=== PATIENT | male | born 1965 | race Caucasian/White ===

== ENCOUNTER → 2021-08-10 08:29 | Outpatient (CLI) | payer OTHER, MEDICAID, SELFPAY ==
[2021-08-10 21:02] LABS: COVID19 - ORCAS (NP or Nasal) Negative (Negative)
== END ==
PROVIDERS: PCP Physician Assistant Medical; Visit Provider Physician Assistant
DX: Z20.822 Contact with and (suspected) exposure to COVID-19 (principal)
CPT/HCPCS: C9803; U0003

== ENCOUNTER → 2021-10-04 10:08 | Outpatient (CLI) | payer OTHER, MEDICAID, SELFPAY ==
[2021-10-04 11:25] LABS: Fractionated Inspired Oxygen 21; HCO3 ABG 28 mmol/L (22-26); Oxygen Saturation ABG 95 % (95-100); PCO2 ABG 43.3 mmHg (35-45); PO2 ABG 77 mmHg (80-100); TCO2 ABG 29 mmol/L (21-31); pH ABG 7.42 (7.35-7.45)
== END ==
PROVIDERS: PCP Physician Assistant Medical; Referring Provider Internal Medicine Pulmonary Disease; Visit Provider Internal Medicine Pulmonary Disease
DX: J43.2 Centrilobular emphysema (principal)
CPT/HCPCS: 36600; 82805

== ENCOUNTER 2023-02-17 13:23 | Inpatient (IN) | payer MEDICARE, MEDICAID, SELFPAY ==
[2023-02-17] VITALS (9 sets, daily range): BP systolic 92–125; BP diastolic 44–72; PULSE 70–110; RESP 16–26; TEMP 36.9–37.7; O2SAT 86–98; BMI 16.7
--- NOTE | 2023-02-17 | DI.MRI.S_ITS ---
PROCEDURE: MR HEAD/BRAIN WO CON INDICATIONS: ETOH abuse, Fall head injury TECHNIQUE: Noncontrast axial T1 spin echo, axial T2 fast spin echo, sagittal and axial FLAIR, coronal T2 fast spin echo, axial gradient echo, axial diffusion and ADC through the brain. COMPARISON: [facility], CT, CT HEAD/BRAIN WO CON, 02/17/2023, 14:24. FINDINGS: Image quality: Excellent. CSF Spaces: Basal cisterns are patent. No extra-axial fluid collections. Ventricles are normal in size and shape. Brain: No intracranial masses or hemorrhage. Edwards/white matter interface is normal. T2 hyperintense focus at the left deep white matter, (8/13). Brainstem appears normal. Diffusion-weighted images demonstrate no acute ischemic insult. No chronic ischemic insults. Normal intravascular flow voids are present. Skull and face: Calvarium has normal marrow signal. Orbits appear normal. Sinuses: Sinuses and mastoids are clear. IMPRESSION: No acute intracranial abnormality. No acute infarct. Dictated by: Vik Carreno M.D. on 02/18/2023 at 12:33 Approved by: Vik Carreno M.D. on 02/18/2023 at 12:38
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
[2023-02-17 13:59] LABS: Add Manual Diff / Slide Review NO; Basophils Absolute Auto 100 /uL (0-100); Basophils Percent Auto 0.7 % (0-2); Eosinophils Absolute Auto 0 /uL (0-450); Eosinophils Percent Auto 0.4 % (2-4); Hematocrit 39.8 % (41-53); Hemoglobin 13.5 g/dL (13.5-17.5); Lymphocytes Absolute Auto 3200 /uL (1100-4500); Lymphocytes Percent Auto 37.8 % (25-40); Mean Corpuscular Hemoglobin 31.7 PG (26-34); Mean Corpuscular Volume 93.1 fL (80-100); Monocytes Absolute Auto 400 /uL (0-900); Monocytes Percent Auto 4.4 % (3-14); Neutrophils Absolute Auto 4900 /uL (1500-7000); Neutrophils Percent Auto 56.7 % (50-75); Platelet Count 376 X10^3/uL (150-400); Red Blood Cell Count 4.27 X10^6/uL (4.5-5.9); Red Cell Distribution Width 16.6 % (11.6-14.8); White Blood Cell Count 8.6 X10^3/uL (4.5-11.0)
[2023-02-17 14:04] LABS: Prothrombin Time 11.3 SECONDS (10.1-12.7)
[2023-02-17 14:07] LABS: PTT Partial Thromboplastin Tim 32 SECONDS (26-36)
[2023-02-17 14:10] LABS: Alanine Aminotransferase 18 IU/L (<50); Albumin 4.2 g/dL (3.5-5.0); Albumin Globulin Ratio 1.4 (1.0-2.8); Alkaline Phosphatase 85 U/L (38-126); Aspartate Aminotransferase 32 IU/L (17-59); BUN Creatinine Ratio 26.5 (6-22); Bilirubin Total 0.3 mg/dL (0.2-1.3); Blood Urea Nitrogen 13 mg/dL (9-20); Calcium 8.2 mg/dL (8.4-10.2); Carbon Dioxide 30 mmol/L (22-32); Chloride 100 mmol/L (98-107); Creatine Kinase 84 U/L (55-170); Estimated Glomerular Filt Rate > 60 mL/min (>60); Globulin 3.1 g/dL (1.7-4.1); Glucose 87 mg/dL (70-100); HEMOLYSIS < 15 (0-50); Lactate (Lactic Acid) 2.9 mmol/L (0.7-2.1); Lipase 119 U/L (23-300); Potassium 3.7 mmol/L (3.4-5.1); Sodium 141 mmol/L (137-145); Total Protein 7.3 g/dL (6.3-8.2)
[2023-02-17 14:17] LABS: Ethanol (ETOH) 430 mg/dL
[2023-02-17 14:21] LABS: NT-proBNP (BNP-Adult 18+) 67 pg/mL (<125); Troponin I < 0.012 ng/mL (0.01-0.034)
[2023-02-17] MEDS: ALBUTEROL 2.5 MG/3 ML NEB (ADULT) 10 MG INH (14:35)
[2023-02-17] MEDS: ALBUTEROL/IPRATROPIUM 3 ML AMPUL INH ×2 (14:35→23:23)
[2023-02-17] MEDS: TET,DIPH,PERTUSS(ACELL),VAC/PF 0.5 ML SYRINGE IM (14:50)
[2023-02-17] MEDS: methylPREDNISolone 125 MG/2 ML VIAL IV (14:50)
[2023-02-17 15:10] LABS: Ur Creatinine Normal (Normal); Ur Specific Gravity Normal (Normal); Urine pH Normal (Normal)
[2023-02-17 15:11] LABS: UR Morphine/Opiate cutoff 300 Negative (Negative); Urine Amphetamines Negative (Negative); Urine Barbiturates Negative (Negative); Urine Benzodiazepines Negative (Negative); Urine Cocaine Negative (Negative); Urine MDMA Negative (Negative); Urine Methadone Negative (Negative); Urine Methamphetamines Negative (Negative); Urine Oxycodone Negative (Negative); Urine Phencyclidine Negative (Negative); Urine Tetrahydrocannabinol Negative (Negative); Urine Tricyclic Antidepressant Negative (Negative)
--- NOTE | 2023-02-17 15:35 | RT ---
pt barney neb tx well, no distress noted and on 1 lpm nc
[2023-02-17 15:53] LABS: HCO3 ABG 29 mmol/L (23-27); Oxygen Saturation ABG 93 % (95-100); PCO2 ABG 59.2 mmHg (35-45); PO2 ABG 78 mmHg (80-100); TCO2 ABG 31 mmol/L (23-27)
[2023-02-17 15:54] LABS: Fractionated Inspired Oxygen 28
[2023-02-17 15:55] LABS: Reflexed Lactate in 2 Hours Y
--- NOTE | 2023-02-17 18:10 | PC.NURSE ---
pt rolled over in sleep displacing NC. Oxygen levels dropped to 82% with good waveform on oximeter. reported to provider
[2023-02-17] MEDS: SODIUM CHLORIDE 0.9% 1,000 ML 1000 ML IV (18:40)
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
[2023-02-17 21:22] LABS: Procalcitonin 0.05 ng/mL (<0.5)
[2023-02-18] VITALS (28 sets, daily range): BP systolic 117–164; BP diastolic 67–109; PULSE 49–110; RESP 16–31; TEMP 35.9–37.1; O2SAT 90–98
[2023-02-18 01:51] LABS: Adenovirus Not Detected (Not Detect); B. parapertussis Not Detected (Not Detecte); Bordetella pertussis Not Detected (Not Detecte); Chlamydophila pneumoniae Not Detected (Not Detect); Coronavirus 229E Not Detected (Not Detect); Coronavirus HKU1 Not Detected (Not Detect); Coronavirus NL 63 Not Detected (Not Detect); Coronavirus OC43 Not Detected (Not Detect); Human Metapneumovirus Not Detected (Not Detect); Human Rhinovirus/Enterovirus Not Detected (Not Detect); Influenza A Not Detected (Not Detect); Influenza B Not Detected (Not Detect); Mycoplasma pneumoniae Not Detected (Not Detect); Parainfluenza Virus 1 Not Detected (Not Detect); Parainfluenza Virus 2 Not Detected (Not Detect); Parainfluenza Virus 3 Not Detected (Not Detect); Parainfluenza Virus 4 Not Detected (Not Detect); Respiratory Syncytial Virus Not Detected (Not Detect); SARS- CoV-2 Not Detected (Not Detecte)
[2023-02-18] MEDS: LORazepam 1 MG TABLET PO ×4 (03:49→12:13)
[2023-02-18 05:14] LABS: Add Manual Diff / Slide Review NO; Basophils Absolute Auto 0 /uL (0-100); Basophils Percent Auto 0.4 % (0-2); Eosinophils Absolute Auto 0 /uL (0-450); Hematocrit 37.9 % (41-53); Hemoglobin 12.9 g/dL (13.5-17.5); Lymphocytes Absolute Auto 700 /uL (1100-4500); Lymphocytes Percent Auto 17.4 % (25-40); Mean Corpuscular Hemoglobin 31.5 PG (26-34); Mean Corpuscular Volume 92.7 fL (80-100); Monocytes Absolute Auto 100 /uL (0-900); Neutrophils Absolute Auto 3000 /uL (1500-7000); Neutrophils Percent Auto 80.2 % (50-75); Platelet Count 329 X10^3/uL (150-400); Red Blood Cell Count 4.08 X10^6/uL (4.5-5.9); Red Cell Distribution Width 16.7 % (11.6-14.8); White Blood Cell Count 3.8 X10^3/uL (4.5-11.0)
[2023-02-18 05:24] LABS: BUN Creatinine Ratio 28.6 (6-22); Blood Urea Nitrogen 14 mg/dL (9-20); Calcium 8.7 mg/dL (8.4-10.2); Carbon Dioxide 28 mmol/L (22-32); Chloride 96 mmol/L (98-107); Estimated Glomerular Filt Rate > 60 mL/min (>60); Glucose 260 mg/dL (70-100); HEMOLYSIS < 15 (0-50); Potassium 4.2 mmol/L (3.4-5.1); Sodium 133 mmol/L (137-145)
[2023-02-18 07:03] LABS: Procalcitonin 0.05 ng/mL (<0.5)
[2023-02-18 07:07] LABS: Lactate (Lactic Acid) 2.3 mmol/L (0.7-2.1)
[2023-02-18 07:34] LABS: MRSA (Nasal) PCR Not Detected (Not Detect)
[2023-02-18] MEDS: BUDESONIDE 0.5 MG/2 ML NEB INH ×2 (07:54→19:09)
[2023-02-18 08:53] LABS: Reflexed Lactate in 2 Hours Y
[2023-02-18 09:17] LABS: Lactate 2HR (Lactic Acid Rflx) 2.1 mmol/L (0.7-2.1)
[2023-02-18] MEDS: FOLIC ACID 1 MG TABLET PO (09:50)
[2023-02-18] MEDS: predniSONE 20 MG TABLET 40 MG PO (09:50)
[2023-02-18] MEDS: ENOXAPARIN 40 MG/0.4 ML SYRINGE SUBCUT (09:50)
[2023-02-18] MEDS: THIAMINE 100 MG TABLET PO (09:50)
[2023-02-18] MEDS: NICOTINE 14 PATCH 14 MG TOP (09:52)
[2023-02-18] MEDS: MULTIVITAMIN 1 TABLET 1 TAB PO (09:52)
--- NOTE | 2023-02-18 10:24 | PT.IIE ---
Surgical History (Last Updated 02/17/23 @ 21:33 by Alexia Turner [facility]) History of thoracotomy Medical History ETOH abuse Smoker Physical Therapy Inpatient Evaluation/Re-Eval M1 PT/OT-IP Prior Functional Status Start: 02/18/23 11:51 Freq: NEEDED Status: Active Protocol: Document 02/18/23 10:24 AB (Rec: 02/18/23 12:10 AB [id number]) Medical Review Prior Functional Status Medical History Reviewed Yes Communication able to make needs known Mobility and Gait pt stated that he is independent with all mobilities and ambulation without AD Social History Household Members friend(s) Living Arrangements Homeless Number of Stairs To Enter/Railing? pt lives in his car Additional Social History Comment goes to [facility] for showers M2 PT-IP Current Condition Start: 02/18/23 11:51 Freq: NEEDED Status: Active Protocol: Document 02/18/23 10:24 AB (Rec: 02/18/23 12:10 AB [id number]) Physical Therapy Current Condition Current Condition Evaluation Date 02/18/23 Treatment Diagnosis COPD exacerbation; difficulty in walking Onset Date 02/17/23 M3 PT-IP Subjective Start: 02/18/23 11:51 Freq: NEEDED Status: Active Protocol: Document 02/18/23 10:24 AB (Rec: 02/18/23 12:10 AB [email or web address]) Subjective Physical Therapy Visit Type Type Initial Evaluation Visit Start Time 10:24 Visit Stop Time 10:40 Total Visit Minutes 16 Number of SUPER[employer]OR [employer]YING [employer] SOFTENING Visits 0 Physical Therapy Visit Comments Patient Comments agreeable to do PT M4 PT-IP Mobility and Gait Start: 02/18/23 11:51 Freq: NEEDED Status: Active Protocol: Document 02/18/23 10:24 AB (Rec: 02/18/23 12:10 AB [email or web address]) PT-Bed Mobility Assessment Supine to Sit Supine to Sit Standby Assistance,Head of Bed Elevated PT-Transfer Assessment Sit to and From Stand Sit to and from Stand Contact Guard Assistance,1 Person Assistance,Use of Upper Extremities Equipment Transfer Assistive Device None,Gait Belt,Front Wheeled Walker Orthotic/Prosthetic Devices or Brace: No Transfers Transfer Destination Chair Transfer Technique ambulated Transfer Ability Level of Assist Contact Guard Assistance, Minimal Assistance,1 Person Assistance,Use of Upper Extremities Comments Mobility Comments BP in supine: 133/70 O2 sat: 90-93% with 2L/min O2. NC: 109 completed supine to sit SBA. able to sit on EOB SBA. sit to stand CGA and ambulated towards the chair without AD min A and cues for safety. presents with increase bilateral knee flexion with trunk retropulsion. demonstrated unsteady gait with decrease LE elevation and step length. pt sat on chair . agreed to ambulate with a walk. Assessed ambulation using FWW and completed ~ 30 ft in room CGA and cues for safety. pt can be impulsive. Nurse came and informed that pt will be going to have MRI procedure. pt agreed to sit up on the chair. positioned on the chair. call light and table placed within reach. (+) SOB with activity. O2 sat ~ 90% with 2L/min O2. Gait Assessment Gait Gait Assistance Required: Contact Guard Assist,Minimum Assistance Distance (Feet) 30 Able to Maintain Weight Bearing Status Yes During Gait Assistive Devices Assistive Device None,Gait Belt,Front Wheeled Walker Orthotic/Prosthetic Devices or Brace: No Gait Deviations General Gait Pattern Ataxic,Decreased Stride Length ,Decreased Feet Clearance Factors Limiting Gait Function Factors Limiting Gait Function Decreased Activity Tolerance, Decreased Strength,Difficulty Following Directions,Poor Balance,Poor Safety Awareness, Respiratory Distress PT-Balance Assessment Sitting Balance and Reactions Static Sitting Balance Ability Good Dynamic Sitting Balance Ability Good Standing Balance and Reactions Static Standing Balance Ability Fair Dynamic Standing Balance Ability Poor Device Used without AD M5 PT-IP Objective Assessments Start: 02/18/23 11:51 Freq: NEEDED Status: Active Protocol: Document 02/18/23 10:24 AB (Rec: 02/18/23 12:10 AB [email or web address]) Orientation Orientation/Cognition Level of Alertness Alert Orientation Name,Place,Situation Language Function Ability No Deficits Noted Safety Awareness Decreased Safety Awareness Memory Description No Deficits Noted Gross Range of Motion Lower Extremity ROM Assessment Within Functional Limits Strength Lower Extremity Strength Assessment Bilaterally Impaired Hip 4-/5 Knee 3+/5 Muscle Tone Muscle Tone WNL Yes M6 PT-IP Treatment Start: 02/18/23 11:51 Freq: NEEDED Status: Active Protocol: Document 02/18/23 10:24 AB (Rec: 02/18/23 12:10 AB [email or web address]) Physical Therapy Treatment Education Education Provided Safety M7 PT-IP Assessment and Plan Start: 02/18/23 11:51 Freq: NEEDED Status: Active Protocol: Document 02/18/23 10:24 AB (Rec: 02/18/23 12:10 AB [email or web address]) PT Summary Assessment and Plan Potential Rehabilitation Potential Fair Status of Condition at Evaluation Evolving Summary Impairments Pain,ROM,Strength,Balance, Coordination,Sensation,Tone, Cognition,Bed Mobility, Transfers,Gait,Activity Tolerance Assessment Summary pt admitted for respiratory failure due to COPD exacerbation. Pt also had a fall and with h/o ETOH use. pt also lives in his car with his friend at this time. pt requiring min A with ambulation without AD and presents with unsteady gait and (+) SOB. pt steadier with ambulation using FWW requiring CGA. will continue to assess progress. May need FWW or least restrictive AD use if pt is not safe without AD. Goals Bed Mobility Goal Independent Transfer Goal Independent,Front Wheeled Walker Gait Goal Independent,Front Wheel Walker Gait Distance 300 Other Goals improve transfers and ambulation using least restrictive AD or without AD mod I up/down 10 steps 1 rail SBA Days to Meet Goals 10 Frequency of Treatment Frequency Of Treatment Once a Day Treatment Plan Physical Therapy Treatment Plan Bed Mobility Training,Transfer Training,Gait Training, Therapeutic Exercise,Balance Retraining,Discharge Planning, Hot or Cold Pack,Neuromuscular Re-ed,Coordination Retraining Precautions Other Precautions falls Recommendations To Nursing Amount of Assist Needed 1 Person Assist Discharge Recommendations PT Discharge Recommendations Home vs SNF Equipment Needed for Home Before FWW if not safe without AD/SPC Discharge Transportation Needs at Discharge Private Vehicle,Wheelchair/ Cabulance
--- NOTE | 2023-02-18 12:10 | PC.NURSE ---
Late reassessment on CIWA due to pt going to down to MRI and coming back up at 1148.
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
[2023-02-18] MEDS: LORazepam 2 MG/ML INJ IV ×9 (13:51→17:56)
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
[2023-02-18] MEDS: HYDROCODONE/ACET 5/325 TABLET 1 TAB PO (15:42)
--- NOTE | 2023-02-18 17:17 | PC.NURSE ---
Provider aware that the pt has been getting 2 mg IV push Ativan q15 minutes for a total of 7 doses by 1709.
[2023-02-18] MEDS: HALOPERIDOL 5 MG/ML VIAL IV (17:57)
[2023-02-18] MEDS: dexmedeTOMIDine in 0.9 % NaCL 400 MCG/100 ML PLAST..BAG 5.15 MCG IV (21:00)
[2023-02-19] VITALS (83 sets, daily range): BP systolic 87–165; BP diastolic 50–113; PULSE 40–91; RESP 6–40; TEMP 36.4–36.8; O2SAT 88–99
--- NOTE | 2023-02-19 01:15 | PC.NURSE ---
Addendum entered by Kelsi Lau R.N. 02/19/23 07:43: 0530- Patient had sudden desaturation to 83-84%. Breathing treatment given saturation only responded to 86-87%. Patient work of breathing increasing. Patient placed on 100% NRB and DENILSON Turner called to the bedside. Precedex increased to .08. EICU consulted and plan to intubate initiated. ER doctor came to intubate see procedure note. Patient on ventilator by 0600. Sedation meds ordered. Report given to day shift RN. Stable at time of report. Original Note: 0100- Patient desaturated to 88-89%. Patient restless and work of breathing markedly increased. Respiratory rate 40-45. Respiratory Therapy called for a stat treatment. DENILSON Turner called and ABG ordered. Patient using accessory muscles to breathe. Precedex increased to address restlessness. ABG did not reveal numbers that needed immediate intervention. Patient has good urinary output. Lungs: defuse wheezes bilaterally with very deminshed bases. Will monitor closely.
[2023-02-19 04:51] LABS: Hematocrit 38.5 % (41-53); Hemoglobin 12.9 g/dL (13.5-17.5); Mean Corpuscular HGB Conc 33.4 % (30-36); Mean Corpuscular Volume 92.9 fL (80-100); Platelet Count 311 X10^3/uL (150-400); Red Blood Cell Count 4.15 X10^6/uL (4.5-5.9); Red Cell Distribution Width 16.3 % (11.6-14.8); White Blood Cell Count 12.5 X10^3/uL (4.5-11.0)
[2023-02-19 04:52] LABS: Add Manual Diff / Slide Review YES
[2023-02-19 04:58] LABS: BUN Creatinine Ratio 27.1 (6-22); Blood Urea Nitrogen 13 mg/dL (9-20); Calcium 8.9 mg/dL (8.4-10.2); Carbon Dioxide 38 mmol/L (22-32); Chloride 98 mmol/L (98-107); Estimated Glomerular Filt Rate > 60 mL/min (>60); Glucose 115 mg/dL (70-100); HEMOLYSIS < 15 (0-50); Potassium 4.1 mmol/L (3.4-5.1); Sodium 138 mmol/L (137-145)
[2023-02-19 05:09] LABS: Neutrophils Absolute Manual 10500 /uL (3000-5900); Total Cells Counted 100
[2023-02-19 05:10] LABS: Anisocytosis 2+
[2023-02-19] MEDS: methylPREDNISolone 125 MG/2 ML VIAL 60 MG IV ×2 (05:43→10:53)
--- NOTE | 2023-02-19 05:48 | P.TELICUCN_ITS ---
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 Initially admitted after fall, found to have COPD exacerbation/hypercarbic respiratory failure. Had received steroids, nebs and was on NC. Over course of 02/18 received several doses of ativan on ciwa protocol as well as precedex gtt and became more somnolent. Was upgraded to ICU status. abg on 6 L O2 7.37/63/69- However, he acutely had worsening respiratory distress with use of accessory muscles, poor air movement and desat to 80's- now on 100% NRB. He was given neb, will be given iv steroids, mag. starting abx for possible aspiration PNA. Bipap is not a ocean transportation intermediary option given his current somnolence, however, he is being placed on bipap to temporize with MD is called in for intubation. [facility] Medical History ETOH abuse Smoker Surgical History History of thoracotomy Family History Grandfather Diabetes mellitus Uncle Diabetes mellitus Father Cancer Social History household members: friend(s) Smoking Status: Current every day smoker alcohol intake: current Current Medications Current Medications Medications: Home Medications budesonide-formoterol HFA 80 mcg-4.5 mcg/actuation aerosol inhaler (Symbicort) 2 puff inhalation BID #10.2 grams 05/28/21 [Rx Confirmed 02/18/23] albuterol sulfate 90 mcg/actuation aerosol inhaler See Rx Instructions .Route .COMPLEX #8.5 grams 09/30/21 [Rx Confirmed 02/18/23] tiotropium bromide 18 mcg capsule with inhalation device (Spiriva with HandiHaler) 1 cap inhalation DAILY 02/23/22 [History Confirmed 02/18/23] Visit Medications (administered) Generic Name Dose Route Start Last Admin Trade Name Freq PRN Reason Stop Dose Admin Hydrocodone Bitart/Acetaminophen 1 tab 02/17/23 19:55 02/18/23 15:42 Hydrocodone/Acet 5/325 Tablet PO 1 tab Q4H PRN Administration Pain, Moderate (4-10 Budesonide 0.5 mg 02/18/23 08:00 02/18/23 19:09 Budesonide 0.5 Mg/2 Ml Neb INH 0.5 mg RTBID XU Administration Enoxaparin Sodium 40 mg 02/18/23 09:00 02/18/23 09:50 Enoxaparin 40 Mg/0.4 Ml Syringe SUBCUT 40 mg DAILY XU Administration Folic Acid 1 mg 02/18/23 09:00 02/18/23 09:50 Folic Acid 1 Mg Tablet PO 1 mg DAILY XU Administration dexmedeTOMIDine in 0.9 % NaCL 400 mcg in 100 mls @ 2.575 mls/hr 02/18/23 20:45 02/19/23 01:00 Precedex IV 0.6 mcg/kg/hr TITRATE XU 7.725 mls/hr Titration Protocol 0.2 MCG/KG/HR Lorazepam 0 mg 02/17/23 20:03 02/18/23 12:13 Lorazepam 1 Mg Tablet PO 2 mg CIWAPRN PRN Administration Alcohol Withdrawal Protocol Lorazepam 0 mg 02/18/23 13:31 02/18/23 17:56 Lorazepam 2 Mg/Ml Inj IV 2 mg CIWAPRN PRN Administration Alcohol Withdrawal Protocol Multivitamins 1 tab 02/18/23 09:00 02/18/23 09:52 Multivitamin 1 Tablet PO 1 tab DAILY XU Administration Nicotine 14 mg 02/18/23 09:00 02/18/23 09:52 Nicotine 14 Patch TOP 14 mg DAILY XU Administration Prednisone 40 mg 02/18/23 09:00 02/18/23 09:50 Prednisone 20 Mg Tablet PO 02/22/23 08:59 40 mg DAILY XU Administration Thiamine HCl 100 mg 02/18/23 09:00 02/18/23 09:50 Thiamine 100 Mg Tablet PO 02/21/23 09:01 100 mg DAILY XU Administration Review of Systems Review of Systems Narrative: Patient lying in bed, somnolent, unable to give ROS Exam Vital Signs (past 8 hours): - 02/18/23 22:01 02/18/23 22:00 02/18/23 22:00 Temperature Pulse Rate 51 L Respiratory Rate 27 H Blood Pressure 126/71 Pulse Oximetry 95 Oxygen Delivery Method Simple Mask Oxygen Flow Rate 02/18/23 22:30 02/18/23 23:00 02/18/23 23:00 Temperature Pulse Rate 50 L 49 L Respiratory Rate 27 H 28 H Blood Pressure 123/67 Pulse Oximetry 94 97 Oxygen Delivery Method Oxygen Flow Rate 02/18/23 23:30 02/19/23 00:00 02/19/23 00:00 Temperature 97.5 F L Pulse Rate 50 L 55 L Respiratory Rate 27 H 27 H Blood Pressure 123/71 Pulse Oximetry 96 93 Oxygen Delivery Method Oxygen Flow Rate 6 6 02/19/23 00:16 02/19/23 01:00 02/19/23 01:00 Temperature Pulse Rate 61 91 H Respiratory Rate 26 H 40 H Blood Pressure 114/59 L Pulse Oximetry 92 91 Oxygen Delivery Method Oxygen Flow Rate 5 5 02/19/23 01:03 02/19/23 01:03 02/19/23 01:07 Temperature Pulse Rate 86 Respiratory Rate 27 H Blood Pressure 104/58 L 102/58 L Pulse Oximetry 92 Oxygen Delivery Method Oxygen Flow Rate 5 5 5 02/19/23 01:07 02/19/23 01:30 02/19/23 01:30 Temperature Pulse Rate 82 74 Respiratory Rate 25 H 25 H Blood Pressure 100/59 L Pulse Oximetry 92 90 L Oxygen Delivery Method Oxygen Flow Rate 5 5 5 02/19/23 01:44 02/19/23 02:01 02/19/23 02:00 Temperature Pulse Rate 73 Respiratory Rate 27 H Blood Pressure 100/61 Pulse Oximetry 91 Oxygen Delivery Method Simple Mask Oxygen Flow Rate 5 02/19/23 02:00 02/19/23 02:30 02/19/23 02:30 Temperature Pulse Rate 68 70 Respiratory Rate 28 H 28 H Blood Pressure 104/67 Pulse Oximetry 93 89 L Oxygen Delivery Method Oxygen Flow Rate 02/19/23 03:00 02/19/23 03:00 02/19/23 03:30 Temperature Pulse Rate 57 L Respiratory Rate 26 H Blood Pressure 110/73 126/69 Pulse Oximetry 91 Oxygen Delivery Method Oxygen Flow Rate 5 02/19/23 03:30 02/19/23 03:59 02/19/23 04:00 Temperature 98.2 F Pulse Rate 50 L 52 L Respiratory Rate 28 H 27 H Blood Pressure 124/77 Pulse Oximetry 93 93 Oxygen Delivery Method Oxygen Flow Rate 5 5 5 02/19/23 04:00 02/19/23 04:30 02/19/23 04:30 Temperature Pulse Rate 52 L 57 L Respiratory Rate 27 H 28 H Blood Pressure 124/81 Pulse Oximetry 93 92 Oxygen Delivery Method Oxygen Flow Rate 15 15 15 02/19/23 05:00 02/19/23 05:00 02/19/23 05:30 Temperature Pulse Rate 66 Respiratory Rate 28 H Blood Pressure 135/72 109/67 Pulse Oximetry 88 L Oxygen Delivery Method Oxygen Flow Rate 15 15 15 02/19/23 05:30 02/19/23 05:32 Temperature Pulse Rate 80 81 Respiratory Rate 32 H 31 H Blood Pressure Pulse Oximetry 92 92 Oxygen Delivery Method Oxygen Flow Rate 15 15 Fraction of Inspired Oxygen 32 SaO2/FiO2 Ratio 293 Oxygen Delivery Method Simple Mask Oxygen Flow Rate 15 Narrative Exam Narrative: Patient lying in bed, eyes closed. Thin. Wearing NRB. USing accessory muscles to breathe. Sat 88% on monitor. SR on tele. BP WNL Objective Imaging Chest x-ray: My impression: CXR ordered but not yet done Labs 02/19/23 04:23 02/19/23 04:23 Labs: Laboratory Results - last 24 hr 02/18/23 02/18/23 02/18/23 04:51 05:50 06:49 WBC RBC Hgb Hct MCV MCH MCHC RDW Plt Count Neut % (Auto) Lymph % (Auto) [place] % (Auto) Eos % (Auto) Baso % (Auto) Lymph # (Auto) [place] # (Auto) Baso # (Auto) Total Counted Seg Neutrophils % Band Neutrophils % Lymphocytes % (Manual) Monocytes % (Manual) Neutrophils # (Manual) RBC Morphology Anisocytosis Sodium Potassium Chloride Carbon Dioxide BUN Creatinine Estimated GFR BUN/Creatinine Ratio Glucose Lactate 2.3 H Calcium Procalcitonin 0.05 Nasal Screen MRSA (PCR) Not detected 02/18/23 02/19/23 02/19/23 09:00 04:23 04:23 WBC 12.5 H D RBC 4.15 L Hgb 12.9 L Hct 38.5 L MCV 92.9 MCH 31.0 MCHC 33.4 RDW 16.3 H Plt Count 311 Neut % (Auto) Not Reportable Lymph % (Auto) Not Reportable [place] % (Auto) Not Reportable Eos % (Auto) Not Reportable Baso % (Auto) Not Reportable Lymph # (Auto) Not Reportable [place] # (Auto) Not Reportable Baso # (Auto) Not Reportable Total Counted 100 Seg Neutrophils % 82.0 H Band Neutrophils % 2.0 L Lymphocytes % (Manual) 12.0 L Monocytes % (Manual) 4.0 Neutrophils # (Manual) 55016 H RBC Morphology See below Anisocytosis 2+ H Sodium 138 Potassium 4.1 Chloride 98 Carbon Dioxide 38 H BUN 13 Creatinine 0.48 L Estimated GFR > 60 BUN/Creatinine Ratio 27.1 H Glucose 115 H D Lactate 2.1 Calcium 8.9 Procalcitonin Nasal Screen MRSA (PCR) Assessment & Plan Assessment and plan (1) ETOH abuse: Status: Acute (2) Head injury: Status: Acute (3) Acute respiratory failure with hypoxia and hypercapnia: Status: Acute (4) Acute exacerbation of chronic obstructive pulmonary disease: Status: Acute (5) Alcohol intoxication: Status: Acute (6) Abrasion of scalp: Status: Acute (7) COPD (chronic obstructive pulmonary disease): Status: Acute (8) Smoker: Status: Acute (9) Pneumonia: Qualifiers: Pneumonia type: due to unspecified organism Laterality: unspecified laterality Lung location: unspecified part of lung Qualified Code(s): J18.9 - Pneumonia, unspecified organism Status: Acute (10) Alcohol withdrawal: Status: Acute Assessment & Plan narrative: 57 yo M with COPD hx, now in alcohol withdrawal, sedated on ativan/precedex. With acute worsening or respiratory status, hypoxemia, poor air movement. Concerning for possible aspiration and COPD exacerbation. Discussed case with ARMATURE STRAIGHTENER Plan will be intubation. Temporize with bipap for now q 4 duonebs methylpred- 60 iv q 6 mag 2 grams now start zosyn for aspiration coverage follow up post intubation CXR, ABG, obtain sputum cultures from ETT admission cultures are pending Start Tube feeds once intubated, low BMI continue thiamine, MVI , folate Is scheduled for MRI brain given head injury/scalp abrasion (CT head neg for acute intracranial process) vent sedation with precedex, fentanyl gtt ativan per CIWA nicotine patch, encourage tobacco cessation SW consult given homelessness Lovenox, famotidine for PPX Time Spent With Patient Time with patient: 50 to 69 minutes with 50% spent counseling/coordinating care (50 min critical care time)
[2023-02-19] MEDS: dexmedeTOMIDine in 0.9 % NaCL 400 MCG/100 ML PLAST..BAG 19.313 MCG IV (06:08)
--- NOTE | 2023-02-19 06:11 | PM.PROC.1 ---
Procedures Date/Time Date of procedure: 02/19/23 Time of procedure: 06:12 General Procedure description: Asked by hospitalist service to help with intubation for this gentleman in the intensive care unit with worsening hypoxic respiratory failure currently on BiPAP at 100% with saturations dipping into the upper 80s. Intubation Time out performed: Yes Sedative: other (precedex drip already in place) Paralytic: succinylcholine Mg given: 100 Laryngoscope: fiber optic video scope ET tube size: 8 ET tube uncuffed: No Tube secured depth (cm): 23 Tube secured location: teeth Tube placement confirmation: visualized tube passing through cords, equal breath sounds bilaterally, no breath sounds over epigastrium and confirmation by capnometry Patient tolerated procedure: well Intubation complications: none Additional comments: Very long expiratory phase once intubated. Allowed for extended expiration and sats as well as BP improved. Recommend short inspiratory phase and long exp phase to avoid breath stacking.
--- NOTE | 2023-02-19 06:15 | DI.RAD.S_ITS ---
PROCEDURE: XR CHEST 1V INDICATIONS: eval ETT TECHNIQUE: One view of the chest was acquired. COMPARISON: [facility], CT, CT CERVICAL SPINE WO CON, 02/17/2023, 14:24. [facility], CR, XR CHEST 1V, 02/17/2023, 13:36. FINDINGS: Surgical changes and devices: Endotracheal tube is in place with the distal tip projecting approximately 7 cm above the sean. Lungs and pleura: Redemonstration of linear scarring of the bilateral upper lung zone/apices compatible with previously seen scarring and emphysematous changes on comparison CT of the cervical spine. Streaky opacities in linear lucencies noted predominantly in the left upper lung zone likely related to artifact from overlying support equipment. However, pneumomediastinum not excluded. No focal consolidation. No pleural effusions or pneumothorax. Mediastinum: Mediastinal contours appear stable. Heart size is normal. Bones and chest wall: No suspicious bony lesions. Overlying soft tissues appear unremarkable. IMPRESSION: Endotracheal tube tip projects approximately 7 cm above the sean. Streaky opacities of the medial upper lung zone/apices likely related to scarring and pulmonary emphysematous changes. However, there is suggestion of linear lucencies medially which may represent possible pneumomediastinum versus artifact of overlying support equipment. Follow-up radiograph recommended. No significant discrepancy with the patching machine operator radiology preliminary report. Dictated by: Tesfaye Whitman M.D. on 02/19/2023 at 7:33 Approved by: Tesfaye Whitman M.D. on 02/19/2023 at 7:46
[2023-02-19] MEDS: MIDAZOLAM 2 MG/2 ML VIAL (06:19)
[2023-02-19] MEDS: SUCCINYLCHOLINE 200 MG/10 ML VIAL 100 MG IV (06:20)
[2023-02-19] MEDS: PIPERACILLIN/TAZO 4.5 GM in SODIUM CHLORIDE 0.9% 100 ML IV (06:21)
--- NOTE | 2023-02-19 06:23 | PM.EVENT ---
Event Note Date Patient Seen: 02/19/23 Time Patient Seen: 00:00 Event Note (Rapid Response, Code, or fall): 0000 Acute hypoxic hypercapnic respiratory failure At approximately midnight patient became significantly sedated following a total of 18 mg of Ativan given on the day shift for alcohol withdrawal symptoms, O2 saturations were dropping into the low 80s, increasing respiratory distress, tachypneic RR 30-50, increased work of breathing, prolonged expiratory phase, accessory muscle use, tachypneic. Patient was moved to the ICU was placed on non-rebreather mask 6 L, lung sounds were decreased in bilateral bases poor air exchange Patient's respiratory function & work of breathing on the Precedex drip. Tachypnea and O2 saturations resolved. ABGs pH 7.354, pCO2 63.4, PO2 69, base excess 10, bicarb 35.3, TCO2 37, O2 saturation 92%, sodium 140, potassium 4.3 Portable chest ordered Nebulizer treatment 5:30 a.m. The patient became significantly tachypneic with prolonged expiratory phase, patient was placed on 100% non-rebreather O2 sats continued to be in the 80s respiratory rate 30 to 40s, significantly increased work of breathing and accessory muscle use. Ordered BiPAP to bridge the patient until intubation could be performed Zosyn to cover for possible aspiration pneumonia Methylprednisone 60 mg now, Q day Repeat nebulizer Consult Dr. Navarro tele mill operator head who agreed with plan of care Consult Dr. Landeros ED for intubation due to pending respiratory arrest Patient placed on Versed drip in addition to Precedex Patient was intubated approximately 6:00 a.m. Patient has stabilized improve air exchange, tachypnea resolved. 0000 Alcohol abuse with acute alcohol withdrawal continued to have significant withdrawal symptoms despite the total of 18 mg of Ativan given on the day shift Placed patient on a Precedex drip@0100
[2023-02-19 06:43] LABS: Alanine Aminotransferase 16 IU/L (<50); Albumin 3.7 g/dL (3.5-5.0); Albumin Globulin Ratio 1.3 (1.0-2.8); Alkaline Phosphatase 80 U/L (38-126); Aspartate Aminotransferase 25 IU/L (17-59); BUN Creatinine Ratio 29.5 (6-22); Bilirubin Total 0.5 mg/dL (0.2-1.3); Blood Urea Nitrogen 13 mg/dL (9-20); Calcium 9.2 mg/dL (8.4-10.2); Carbon Dioxide 37 mmol/L (22-32); Chloride 100 mmol/L (98-107); Estimated Glomerular Filt Rate > 60 mL/min (>60); Globulin 2.8 g/dL (1.7-4.1); Glucose 113 mg/dL (70-100); HEMOLYSIS < 15 (0-50); Potassium 4.4 mmol/L (3.4-5.1); Sodium 138 mmol/L (137-145); Total Protein 6.5 g/dL (6.3-8.2)
[2023-02-19 06:46] LABS: HCO3 ABG 35 mmol/L (23-27); PCO2 ABG 63.4 mmHg (35-45); PO2 ABG 69 mmHg (80-100)
[2023-02-19 06:47] LABS: Fractionated Inspired Oxygen 32; Oxygen Saturation ABG 92 % (95-100); TCO2 ABG 37 mmol/L (23-27)
[2023-02-19 06:48] LABS: pH ABG 7.35 (7.35-7.45)
[2023-02-19] MEDS: MIDAZOLAM 50 MG in DEXTROSE 5 % IN WATER 40 ML IV ×2 (06:51→16:58)
--- NOTE | 2023-02-19 07:25 | DI.RAD.S_ITS ---
PROCEDURE: XR CHEST 1V INDICATIONS: Possible pnuemomediastinum TECHNIQUE: One view of the chest was acquired. COMPARISON: [facility], CR, XR CHEST 1V, 02/19/2023, 6:02. FINDINGS: Surgical changes and devices: Endotracheal tube tip projects approximately 5 cm above the sean. Lungs and pleura: Previously described medial, bilateral upper lung zone and apical streaky opacities have resolved. Persistent biapical scarring and pulmonary emphysematous changes as before. No new focal airspace disease. No pneumothorax appreciated. No substantial pleural effusion. Mediastinum: Mediastinal contours appear normal. Heart size is normal. Bones and chest wall: No suspicious bony lesions. Overlying soft tissues appear unremarkable. IMPRESSION: Endotracheal tube tip projects approximately 5 cm above the sean. Biapical pulmonary emphysematous changes and scarring as before. No new focal airspace disease. No findings to suggest pneumomediastinum. Dictated by: Tesfaye Whitman M.D. on 02/19/2023 at 8:01 Approved by: Tesfaye Whitman M.D. on 02/19/2023 at 8:06
[2023-02-19] MEDS: BUDESONIDE 0.5 MG/2 ML NEB INH ×2 (07:42→19:08)
[2023-02-19] MEDS: MAGNESIUM SULFATE 2 GM/50 ML PIGGYBACK IV (07:56)
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
--- NOTE | 2023-02-19 08:05 | DI.RAD.S_ITS ---
PROCEDURE: XR CHEST 1V INDICATIONS: OG tube placement TECHNIQUE: One view of the chest was acquired. COMPARISON: [facility], CR, XR CHEST 1V, 02/19/2023, 7:25. FINDINGS: Surgical changes and devices: Right IJ central venous line in the mid SVC. Endotracheal tube tip unchanged. Nasogastric tube in the stomach. Lungs and pleura: Lungs are clear. No pleural effusions or pneumothorax. Mediastinum: Mediastinal contours appear normal. Heart size is normal. Bones and chest wall: No suspicious bony lesions. Overlying soft tissues appear unremarkable. IMPRESSION: Right IJ central venous line in the mid SVC. No pneumothorax. Other lines and tubes unchanged. Hyperinflation and chronic interstitial changes Approved by: Wayne Chinchilla M.D. on 02/19/2023 at 11:06
[2023-02-19] MEDS: propofoL 200 MG/20 ML VIAL 50 MG IV (08:50)
[2023-02-19] MEDS: NICOTINE 14 PATCH 14 MG TOP (09:48)
[2023-02-19] MEDS: ENOXAPARIN 40 MG/0.4 ML SYRINGE SUBCUT (09:48)
[2023-02-19] MEDS: FAMOTIDINE 20 MG/2 ML VIAL IV ×2 (09:48→21:20)
--- NOTE | 2023-02-19 09:58 | P.CONS_ITS ---
History of Present Illness Consult details Date Patient Seen: 02/19/23 Time Patient Seen: 07:55 Chief complaint: Acute resp Failure/ETOH intoxication, head injury Reason for consult: Need for CVL placement Narrative: Pt is in ICU. Pt is intubated. US was used for line placement. Sterile gown and gloves. Triple lumen catheter was inserted. FlushX3. CXR was ordered. VSS. Meds Home Medications and Allergies Home Medications Medication Instructions Recorded Confirmed Type budesonide-formoterol HFA 80 2 puff inhalation BID #10.2 grams 05/28/21 02/18/23 Rx mcg-4.5 mcg/actuation aerosol inhaler (Symbicort) albuterol sulfate 90 mcg/actuation See Rx Instructions .Route 09/30/21 02/18/23 Rx aerosol inhaler .COMPLEX #8.5 grams tiotropium bromide 18 mcg capsule 1 cap inhalation DAILY 02/23/22 02/18/23 History with inhalation device (Spiriva with HandiHaler) Allergies Allergy/AdvReac Type Severity Reaction Status Date / Time No Known Drug Allergies Allergy Unverified 02/23/22 10:05 Exam Vital Signs (past 8 hours): - 02/19/23 02:01 02/19/23 02:00 02/19/23 02:00 Temperature Pulse Rate 68 Respiratory Rate 28 H Blood Pressure 100/61 Pulse Oximetry 93 Oxygen Delivery Method Simple Mask Oxygen Flow Rate Fraction of Inspired Oxygen 02/19/23 02:30 02/19/23 02:30 02/19/23 03:00 Temperature Pulse Rate 70 Respiratory Rate 28 H Blood Pressure 104/67 110/73 Pulse Oximetry 89 L Oxygen Delivery Method Oxygen Flow Rate Fraction of Inspired Oxygen 02/19/23 03:00 02/19/23 03:30 02/19/23 03:30 Temperature Pulse Rate 57 L 50 L Respiratory Rate 26 H 28 H Blood Pressure 126/69 Pulse Oximetry 91 93 Oxygen Delivery Method Oxygen Flow Rate 5 5 Fraction of Inspired Oxygen 02/19/23 03:59 02/19/23 04:00 02/19/23 04:00 Temperature 98.2 F Pulse Rate 52 L 52 L Respiratory Rate 27 H 27 H Blood Pressure 124/77 Pulse Oximetry 93 93 Oxygen Delivery Method Oxygen Flow Rate 5 5 15 Fraction of Inspired Oxygen 02/19/23 04:30 02/19/23 04:30 02/19/23 05:00 Temperature Pulse Rate 57 L Respiratory Rate 28 H Blood Pressure 124/81 135/72 Pulse Oximetry 92 Oxygen Delivery Method Oxygen Flow Rate 15 15 15 Fraction of Inspired Oxygen 02/19/23 05:00 02/19/23 05:30 02/19/23 05:30 Temperature Pulse Rate 66 80 Respiratory Rate 28 H 32 H Blood Pressure 109/67 Pulse Oximetry 88 L 92 Oxygen Delivery Method Oxygen Flow Rate 15 15 15 Fraction of Inspired Oxygen 02/19/23 05:32 02/19/23 06:00 02/19/23 06:00 Temperature Pulse Rate 81 63 Respiratory Rate 31 H 22 Blood Pressure Pulse Oximetry 92 93 Oxygen Delivery Method Mechanical Ventilation Oxygen Flow Rate 15 Fraction of Inspired Oxygen 02/19/23 06:01 02/19/23 06:01 02/19/23 06:05 Temperature Pulse Rate 77 Respiratory Rate 11 L Blood Pressure 139/64 162/113 H Pulse Oximetry 95 Oxygen Delivery Method Oxygen Flow Rate Fraction of Inspired Oxygen 02/19/23 06:05 02/19/23 06:30 02/19/23 06:30 Temperature Pulse Rate 80 74 Respiratory Rate 6 L 23 Blood Pressure 104/66 Pulse Oximetry 94 95 Oxygen Delivery Method Oxygen Flow Rate Fraction of Inspired Oxygen 02/19/23 07:00 02/19/23 07:00 02/19/23 07:51 Temperature Pulse Rate 48 L 43 L Respiratory Rate 26 H 15 Blood Pressure 115/74 Pulse Oximetry 98 99 Oxygen Delivery Method Mechanical Ventilation Oxygen Flow Rate Fraction of Inspired Oxygen 50 02/19/23 07:30 02/19/23 07:30 02/19/23 08:00 Temperature Pulse Rate 44 L Respiratory Rate 20 Blood Pressure 144/78 H 144/82 H Pulse Oximetry 99 Oxygen Delivery Method Oxygen Flow Rate Fraction of Inspired Oxygen 02/19/23 08:00 02/19/23 06:20 Temperature Pulse Rate 41 L Respiratory Rate 29 H Blood Pressure Pulse Oximetry 99 Oxygen Delivery Method Oxygen Flow Rate Fraction of Inspired Oxygen 100 Fraction of Inspired Oxygen 50 SaO2/FiO2 Ratio 198 Oxygen Delivery Method Mechanical Ventilation Oxygen Flow Rate 15 Objective Labs 02/19/23 04:23 02/19/23 04:23 Labs: Laboratory Results - last 24 hr 02/19/23 02/19/23 02/19/23 00:53 04:23 04:23 WBC 12.5 H D RBC 4.15 L Hgb 12.9 L Hct 38.5 L MCV 92.9 MCH 31.0 MCHC 33.4 RDW 16.3 H Plt Count 311 Neut % (Auto) Not Reportable Lymph % (Auto) Not Reportable [place] % (Auto) Not Reportable Eos % (Auto) Not Reportable Baso % (Auto) Not Reportable Lymph # (Auto) Not Reportable [place] # (Auto) Not Reportable Baso # (Auto) Not Reportable Total Counted 100 Seg Neutrophils % 82.0 H Band Neutrophils % 2.0 L Lymphocytes % (Manual) 12.0 L Monocytes % (Manual) 4.0 Neutrophils # (Manual) 70272 H RBC Morphology See below Anisocytosis 2+ H ABG pH 7.35 ABG pCO2 63.4 H* ABG pO2 69 L ABG HCO3 35 H ABG Total CO2 37 H ABG O2 Saturation 92 L ABG Base Excess 10.0 H FiO2 32 Sodium 138 Potassium 4.1 Chloride 98 Carbon Dioxide 38 H BUN 13 Creatinine 0.48 L Estimated GFR > 60 BUN/Creatinine Ratio 27.1 H Glucose 115 H D Calcium 8.9 Total Bilirubin AST ALT Alkaline Phosphatase Total Protein Albumin Globulin Albumin/Globulin Ratio 02/19/23 04:23 WBC RBC Hgb Hct MCV MCH MCHC RDW Plt Count Neut % (Auto) Lymph % (Auto) [place] % (Auto) Eos % (Auto) Baso % (Auto) Lymph # (Auto) [place] # (Auto) Baso # (Auto) Total Counted Seg Neutrophils % Band Neutrophils % Lymphocytes % (Manual) Monocytes % (Manual) Neutrophils # (Manual) RBC Morphology Anisocytosis ABG pH ABG pCO2 ABG pO2 ABG HCO3 ABG Total CO2 ABG O2 Saturation ABG Base Excess FiO2 Sodium 138 Potassium 4.4 Chloride 100 Carbon Dioxide 37 H BUN 13 Creatinine 0.44 L Estimated GFR > 60 BUN/Creatinine Ratio 29.5 H Glucose 113 H Calcium 9.2 Total Bilirubin 0.5 AST 25 ALT 16 Alkaline Phosphatase 80 Total Protein 6.5 Albumin 3.7 Globulin 2.8 Albumin/Globulin Ratio 1.3 PFSH Medical History ETOH abuse Smoker Surgical History History of thoracotomy Family History Grandfather Diabetes mellitus Uncle Diabetes mellitus Father Cancer Social History household members: friend(s) Tobacco & Substance Use Smoking Status: Current every day smoker alcohol intake: current
[2023-02-19 10:05] LABS: x Labcorp Estim. Avg Glu (eAG) 108 mg/dL (.); x Labcorp Hemoglobin A1c 5.4 % (4.8-5.6)
[2023-02-19] MEDS: SODIUM CHLORIDE 0.9% 1,000 ML 100 ML IV (10:09)
[2023-02-19] MEDS: PIPERACILLIN/TAZO 3.375 GM in SODIUM CHLORIDE 0.9% 100 ML IV ×2 (10:13→17:41)
--- NOTE | 2023-02-19 10:23 | PT-IP ANOTE ---
Addendum entered and electronically signed by Iqra Lebron, HIGHWAY RESEARCH ENGINEER 02/19/23 11:59: Will check back on pt when medically stable and appropriate for PT. Original Note: Hold PT today, pt intubated early this AM.
[2023-02-19 10:29] LABS: PCO2 ABG 52.3 mmHg (35-45); pH ABG 7.39 (7.35-7.45)
[2023-02-19 10:30] LABS: Fractionated Inspired Oxygen 50; HCO3 ABG 32 mmol/L (23-27); Oxygen Saturation ABG 100 % (95-100); PO2 ABG 195 mmHg (80-100); TCO2 ABG 33 mmol/L (23-27)
--- NOTE | 2023-02-19 10:44 | DIET.CONS2 ---
Dietary Inpatient Consultation Note Admission Date: 02/17/2023 19:42 Per welfare adviser wait to initiate TF until tomorrow. RD to write orders then. Diet: 02/19/23 00:02 NPO Diet Diet Modifications: May Advance Diet as Tolerated: Yes Safety Tray needed?: No NPO Type: Strict Nutrition Percent Meal Consumed 50% 02/18/23 18:00 Percent Meal Consumed 25% 02/18/23 13:00 Percent Meal Consumed 75% 02/18/23 09:00 Electronically Signed by: Angelika Gaines 02/19/23 10:44 Clinical Dietitian [address] [address]
[2023-02-19] MEDS: THIAMINE 100 MG TABLET PO (10:53)
[2023-02-19] MEDS: MULTIVITAMIN 1 TABLET 1 TAB PO (10:53)
[2023-02-19] MEDS: FOLIC ACID 1 MG TABLET PO (10:53)
[2023-02-19] MEDS: CHLORHEXIDINE GLUCONATE 15 ML CUP PO ×2 (11:15→17:41)
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
[2023-02-19] MEDS: dexmedeTOMIDine in 0.9 % NaCL 400 MCG/100 ML PLAST..BAG 12.875 MCG IV (11:23)
--- NOTE | 2023-02-19 13:06 | PC.NURSE ---
0845 - OG tube inserted, patient tolerated well. Chest x-ray ordered. 0950 - Central line inserted by Dr. Rodgers, chest x-ray ordered. 1305 - Patient lifted upper body and head to their right hand and pulled at ET tube, unclipping quick disconnect portion. Reconnected and patient stabilized. Suctioned thick, white sputum from ET tube. RT alerted and quickly arrived at bedside, no adjustments needed on ET tube.
[2023-02-19] MEDS: fentaNYL 1,000 MCG in DEXTROSE 5% IN WATER 230 ML 6.438 MCG IV (13:35)
[2023-02-19 14:45] LABS: MRSA (Nasal) PCR Not Detected (Not Detect)
[2023-02-19] MEDS: dexmedeTOMIDine in 0.9 % NaCL 400 MCG/100 ML PLAST..BAG 10.3 MCG IV (17:41)
--- NOTE | 2023-02-19 20:17 | PM.ICURNDS ---
- Date Patient Seen: 02/19/23 Time Patient Seen: 20:17 :: This patient was seen via real time interactive two-way audiovisual telecommunication. Note: Patient was emergently intubated early this morning. Currently sedated with versed, fentanyl, and precedex. Vent setting FiO2 35% and PEEP 5. Cont supportive care and check SAT and SBT in the morning. Will stop precedex gtt given bradycardia. Added hydralazine 10 mg IV q4hr prn SBP > 160. D/w RN at bedside.
[2023-02-19] MEDS: HYDRALAZINE 20 MG/ML VIAL 10 MG IV (20:37)
[2023-02-19] MEDS: ALBUTEROL/IPRATROPIUM 3 ML AMPUL INH (21:44)
[2023-02-20] VITALS (63 sets, daily range): BP systolic 91–149; BP diastolic 54–88; PULSE 42–127; RESP 9–28; TEMP 36.3–37.2; O2SAT 88–98
[2023-02-20] MEDS: methylPREDNISolone 125 MG/2 ML VIAL 60 MG IV (00:37)
--- NOTE | 2023-02-20 00:48 | PC.NURSE ---
Pt tone in the 40's and SBP 160's. Precedex at 0.8, Fentanyl at 1 and Versed at 5. Notified . Turned Precedex off at 2029 and gave new order of PRN Hydralazine 10mg. At 2144 Pt was seen sitting up in bed and reaching for breathing tube. Restraints tightened and Precedex restarted at 0.4mcg. HR=80 and BP=90's/50's. RT called to bedside and confirmed tube placement had not moved. Suctioning small amount of thick,yellow secretions from ET tube. Vent remains P=5,Fi02=35%,RR=14,HH=556 and sating 95% NS at 100cc/hr and de leon draining 40cc/hr. OG to INT suction with small amount of light brown output. Pt opening eyes to stimulation but not following commands. Pt appears to less restless at this time. Will attempt to hold precedex at 0400.
[2023-02-20] MEDS: MIDAZOLAM 50 MG in DEXTROSE 5 % IN WATER 40 ML IV (01:39)
[2023-02-20] MEDS: PIPERACILLIN/TAZO 3.375 GM in SODIUM CHLORIDE 0.9% 100 ML IV ×3 (01:53→17:38)
[2023-02-20 04:29] LABS: Add Manual Diff / Slide Review NO; Basophils Absolute Auto 0 /uL (0-100); Basophils Percent Auto 0.1 % (0-2); Eosinophils Absolute Auto 0 /uL (0-450); Hemoglobin 11.8 g/dL (13.5-17.5); Lymphocytes Absolute Auto 700 /uL (1100-4500); Lymphocytes Percent Auto 7.4 % (25-40); Mean Corpuscular HGB Conc 33.7 % (30-36); Mean Corpuscular Hemoglobin 31.4 PG (26-34); Monocytes Absolute Auto 300 /uL (0-900); Monocytes Percent Auto 2.8 % (3-14); Neutrophils Absolute Auto 8500 /uL (1500-7000); Neutrophils Percent Auto 89.7 % (50-75); Platelet Count 268 X10^3/uL (150-400); Red Blood Cell Count 3.77 X10^6/uL (4.5-5.9); Red Cell Distribution Width 16.4 % (11.6-14.8); White Blood Cell Count 9.5 X10^3/uL (4.5-11.0)
[2023-02-20 04:36] LABS: Alanine Aminotransferase 16 IU/L (<50); Albumin 3.2 g/dL (3.5-5.0); Albumin Globulin Ratio 1.1 (1.0-2.8); Alkaline Phosphatase 59 U/L (38-126); Aspartate Aminotransferase 20 IU/L (17-59); BUN Creatinine Ratio 26.7 (6-22); Bilirubin Total 0.5 mg/dL (0.2-1.3); Blood Urea Nitrogen 12 mg/dL (9-20); Calcium 8.2 mg/dL (8.4-10.2); Carbon Dioxide 29 mmol/L (22-32); Chloride 102 mmol/L (98-107); Estimated Glomerular Filt Rate > 60 mL/min (>60); Glucose 135 mg/dL (70-100); HEMOLYSIS < 15 (0-50); Potassium 4.3 mmol/L (3.4-5.1); Sodium 134 mmol/L (137-145); Total Protein 6.2 g/dL (6.3-8.2)
[2023-02-20 06:02] LABS: Fractionated Inspired Oxygen 35; HCO3 ABG 28 mmol/L (23-27); Oxygen Saturation ABG 96 % (95-100); PCO2 ABG 41.7 mmHg (35-45); PO2 ABG 81 mmHg (80-100); TCO2 ABG 29 mmol/L (23-27); pH ABG 7.43 (7.35-7.45)
--- NOTE | 2023-02-20 06:15 | DI.RAD.S_ITS ---
PROCEDURE: XR CHEST 1V INDICATIONS: TECHNIQUE: One view of the chest was acquired. COMPARISON: [facility], CT, CT CERVICAL SPINE WO CON, 02/17/2023, 14:24. [facility], CR, XR CHEST 1V, 02/19/2023, 9:57. [facility], CR, XR CHEST 1V, 02/19/2023, 7:25. FINDINGS: Surgical changes and devices: Tip of the endotracheal tube terminates 5.3 cm above the sean. An NG/OG tube is present with the distal tip below the diaphragm outside the field of view. Tip of the right internal jugular central venous catheter projects over the upper SVC. Lungs and pleura: Biapical pulmonary opacities redemonstrated possibly scarring . No pleural effusion or pneumothorax. Mediastinum: Mediastinal contours appear normal. Heart size is normal. Bones and chest wall: No suspicious bony lesions. Overlying soft tissues appear unremarkable. IMPRESSION: Tip of the endotracheal tube terminates 5.3 cm above the sean. Dictated by: Pk Childers M.D. on 02/20/2023 at 10:11 Approved by: Pk Childers M.D. on 02/20/2023 at 10:20
[2023-02-20] MEDS: CHLORHEXIDINE GLUCONATE 15 ML CUP PO (06:48)
[2023-02-20] MEDS: BUDESONIDE 0.5 MG/2 ML NEB INH ×2 (07:20→19:42)
--- NOTE | 2023-02-20 08:42 | PT-IP ANOTE ---
Pt not appropriate at this time for PT. Will check back in tomorrow for PT needs.
--- NOTE | 2023-02-20 08:51 | OT.IPNOTE ---
OT eval and treat order received. Pt is currently intubated and restrained. Will hold and continue to follow.
--- NOTE | 2023-02-20 09:49 | P.TELICUPN_ITS ---
Subjective Subjective IF CAMERA ACTIVATED, patient seen via real-time interactive audiovisual communication: Camera activated Consent obtained for tele-grain mill products inspector care: Yes Patient Location: ICU Provider location (State): [place] Other participants/roles: Dr. Renner, pharmacy, RT, bedside Nursing teams Interval history: no acute events overnight Current Medications Current Medications Medications: Home Medications budesonide-formoterol HFA 80 mcg-4.5 mcg/actuation aerosol inhaler (Symbicort) 2 puff inhalation BID #10.2 grams 05/28/21 [Rx Confirmed 02/18/23] albuterol sulfate 90 mcg/actuation aerosol inhaler See Rx Instructions .Route .COMPLEX #8.5 grams 09/30/21 [Rx Confirmed 02/18/23] tiotropium bromide 18 mcg capsule with inhalation device (Spiriva with HandiHaler) 1 cap inhalation DAILY 02/23/22 [History Confirmed 02/18/23] Visit Medications (administered) Generic Name Dose Route Start Last Admin Trade Name Freq PRN Reason Stop Dose Admin Albuterol/Ipratropium 3 ml 02/17/23 21:18 02/19/23 21:44 Albuterol/Ipratropium 3 Ml Ampul INH 3 ml Q2H PRN Administration Shortness Of Breath Or Wheezing Budesonide 0.5 mg 02/18/23 08:00 02/20/23 07:20 Budesonide 0.5 Mg/2 Ml Neb INH 0.5 mg RTBID XU Administration Chlorhexidine Gluconate 15 ml 02/19/23 12:00 02/20/23 08:09 Chlorhexidine Gluconate 15 Ml Cup PO Not Given Q6HR XU Enoxaparin Sodium 40 mg 02/18/23 09:00 02/19/23 09:48 Enoxaparin 40 Mg/0.4 Ml Syringe SUBCUT 40 mg DAILY XU Administration Famotidine 20 mg 02/19/23 09:00 02/19/23 21:20 Famotidine 20 Mg/2 Ml Vial IV 20 mg BID XU Administration Folic Acid 1 mg 02/19/23 10:45 02/20/23 09:07 Folic Acid 1 Mg Tablet PO Not Given DAILY XU Hydralazine HCl 10 mg 02/19/23 20:19 02/19/23 20:37 Hydralazine 20 Mg/Ml Vial IV 10 mg Q6HR PRN Administration Hypertension SBP > 160 dexmedeTOMIDine in 0.9 % NaCL 400 mcg in 100 mls @ 2.575 mls/hr 02/18/23 20:45 02/19/23 17:41 Precedex IV 0.8 mcg/kg/hr TITRATE XU 10.3 mls/hr Administration Protocol 0.2 MCG/KG/HR Piperacillin Sod/Tazobactam 100 mls @ 25 mls/hr 02/19/23 10:00 02/20/23 01:53 Sod 3.375 gm/ Sodium Chloride IV 25 mls/hr Q8H XU Administration Midazolam HCl 50 mg/ Dextrose 50 mls @ 0.515 mls/hr 02/19/23 06:14 02/20/23 01:39 IV 0.01 mg/kg/hr TITRATE PRN 0.515 mls/hr Sedation Administration Protocol 0.01 MG/KG/HR Sodium Chloride 1,000 mls @ 100 mls/hr 02/19/23 09:45 02/19/23 10:09 Normal Saline 0.9% IV 100 mls/hr CONT XU Administration Fentanyl 1,000 mcg/ Dextrose 250 mls @ 9.013 mls/hr 02/19/23 09:45 02/19/23 18:46 IV 1 mcg/kg/hr TITRATE XU 12.875 mls/hr Titration Protocol 0.7 MCG/KG/HR Lorazepam 0 mg 02/17/23 20:03 02/18/23 12:13 Lorazepam 1 Mg Tablet PO 2 mg CIWAPRN PRN Administration Alcohol Withdrawal Protocol Methylprednisolone 60 mg 02/19/23 10:45 02/20/23 00:37 Methylprednisolone 125 Mg/2 Ml Vial IV 60 mg Q12H XU Administration Multivitamins 1 tab 02/19/23 10:45 02/20/23 09:07 Multivitamin 1 Tablet PO Not Given DAILY XU Nicotine 14 mg 02/18/23 09:00 02/19/23 09:48 Nicotine 14 Patch TOP 14 mg DAILY XU Administration Thiamine HCl 100 mg 02/19/23 10:45 02/20/23 09:07 Thiamine 100 Mg Tablet PO 02/21/23 09:01 Not Given DAILY XU Objective Ventilator Parameters: Ventilator Settings FiO2 35 RT Vent Frequency 14 Ventilator Tidal Volume 480 Exhaled Positive End Expiratory 5 Pressure Inspiratory Phase Time 0.7 I:E Ratio 1:3.5 Patient Position HOB >= 30 degrees Labs 02/20/23 04:06 02/20/23 04:06 Labs: Laboratory Results - last 24 hr 02/18/23 02/19/23 02/19/23 04:51 10:18 13:20 WBC RBC Hgb Hct MCV MCH MCHC RDW Plt Count Neut % (Auto) Lymph % (Auto) [place] % (Auto) Eos % (Auto) Baso % (Auto) Neut # (Auto) Lymph # (Auto) [place] # (Auto) Eos # (Auto) Baso # (Auto) ABG pH 7.39 ABG pCO2 52.3 H ABG pO2 195 H ABG HCO3 32 H ABG Total CO2 33 H ABG O2 Saturation 100 ABG Base Excess 7.0 H FiO2 50 Sodium Potassium Chloride Carbon Dioxide BUN Creatinine Estimated GFR BUN/Creatinine Ratio Glucose Hgb A1c (Ref Lab) 5.4 Estim Average Glucose 108 Calcium Total Bilirubin AST ALT Alkaline Phosphatase Total Protein Albumin Globulin Albumin/Globulin Ratio Nasal Screen MRSA (PCR) Not detected 02/20/23 02/20/23 02/20/23 04:06 04:06 05:45 WBC 9.5 RBC 3.77 L Hgb 11.8 L Hct 35.0 L MCV 93.0 MCH 31.4 MCHC 33.7 RDW 16.4 H Plt Count 268 Neut % (Auto) 89.7 H Lymph % (Auto) 7.4 L [place] % (Auto) 2.8 L Eos % (Auto) 0.0 L Baso % (Auto) 0.1 Neut # (Auto) 8500 H Lymph # (Auto) 700 L [place] # (Auto) 300 Eos # (Auto) 0 Baso # (Auto) 0 ABG pH 7.43 ABG pCO2 41.7 ABG pO2 81 ABG HCO3 28 H ABG Total CO2 29 H ABG O2 Saturation 96 ABG Base Excess 3.0 FiO2 35 Sodium 134 L Potassium 4.3 Chloride 102 Carbon Dioxide 29 BUN 12 Creatinine 0.45 L Estimated GFR > 60 BUN/Creatinine Ratio 26.7 H Glucose 135 H Hgb A1c (Ref Lab) Estim Average Glucose Calcium 8.2 L Total Bilirubin 0.5 AST 20 ALT 16 Alkaline Phosphatase 59 Total Protein 6.2 L Albumin 3.2 L Globulin 3.0 Albumin/Globulin Ratio 1.1 Nasal Screen MRSA (PCR) Exam Vital Signs (past 8 hours): - 02/20/23 02:00 02/20/23 02:00 02/20/23 02:00 Temperature Pulse Rate 52 L Respiratory Rate 19 Blood Pressure 100/61 Pulse Oximetry 94 Oxygen Delivery Method Mechanical Ventilation Fraction of Inspired Oxygen 02/20/23 02:22 02/20/23 02:22 02/20/23 02:30 Temperature Pulse Rate 53 L Respiratory Rate 19 Blood Pressure 103/61 104/64 Pulse Oximetry 92 Oxygen Delivery Method Fraction of Inspired Oxygen 02/20/23 02:30 02/20/23 03:00 02/20/23 03:00 Temperature Pulse Rate 56 L 52 L Respiratory Rate 19 20 Blood Pressure 101/60 Pulse Oximetry 92 92 Oxygen Delivery Method Fraction of Inspired Oxygen 02/20/23 03:05 02/20/23 03:30 02/20/23 03:30 Temperature Pulse Rate 56 L 45 L Respiratory Rate 19 19 Blood Pressure 110/62 Pulse Oximetry 91 96 Oxygen Delivery Method Fraction of Inspired Oxygen 02/20/23 04:00 02/20/23 04:00 02/20/23 04:30 Temperature Pulse Rate 49 L Respiratory Rate 19 Blood Pressure 107/62 109/65 Pulse Oximetry 94 Oxygen Delivery Method Fraction of Inspired Oxygen 02/20/23 04:30 02/20/23 05:00 02/20/23 05:00 Temperature Pulse Rate 49 L 46 L Respiratory Rate 17 14 Blood Pressure 106/63 Pulse Oximetry 94 97 Oxygen Delivery Method Fraction of Inspired Oxygen 02/20/23 05:30 02/20/23 05:30 02/20/23 05:47 Temperature Pulse Rate 44 L 47 L Respiratory Rate 17 17 Blood Pressure 112/62 Pulse Oximetry 95 94 Oxygen Delivery Method Fraction of Inspired Oxygen 02/20/23 06:00 02/20/23 06:00 02/20/23 06:30 Temperature Pulse Rate 45 L Respiratory Rate 18 Blood Pressure 114/66 119/65 Pulse Oximetry 95 Oxygen Delivery Method Fraction of Inspired Oxygen 02/20/23 06:30 02/20/23 07:00 02/20/23 07:00 Temperature Pulse Rate 42 L 49 L Respiratory Rate 17 17 Blood Pressure 114/64 Pulse Oximetry 97 93 Oxygen Delivery Method Fraction of Inspired Oxygen 02/20/23 07:01 02/20/23 07:27 02/20/23 07:30 Temperature Pulse Rate 48 L 45 L Respiratory Rate 15 16 Blood Pressure 106/63 Pulse Oximetry 94 96 Oxygen Delivery Method Mechanical Ventilation Fraction of Inspired Oxygen 35 02/20/23 07:30 02/20/23 07:46 02/20/23 08:00 Temperature 97.4 F L Pulse Rate 46 L Respiratory Rate 16 Blood Pressure 117/69 Pulse Oximetry 95 Oxygen Delivery Method Fraction of Inspired Oxygen 02/20/23 08:00 02/20/23 08:30 02/20/23 08:30 Temperature Pulse Rate 49 L 45 L Respiratory Rate 16 15 Blood Pressure 120/68 Pulse Oximetry 94 97 Oxygen Delivery Method Fraction of Inspired Oxygen 02/20/23 09:00 02/20/23 09:00 Temperature Pulse Rate 45 L Respiratory Rate 14 Blood Pressure 117/68 Pulse Oximetry 97 Oxygen Delivery Method Fraction of Inspired Oxygen Fraction of Inspired Oxygen 35 SaO2/FiO2 Ratio 274 Oxygen Delivery Method Mechanical Ventilation Oxygen Flow Rate 15 Quality TeleICU VTE Deep Vein Thrombosis/Pulmonary Embolism Present on Admission: No Assessment & Plan Assessment & Plan narrative: patient seen on MTD rounds chart/labs/imaging reviewed case discussed at length with bedside provider Dr. Renner 57 year old male with PMHx of COPD, etoh abuse admitted to icu with acute resp failure copd exacerbation etoh withdrawal Fall currently afebrile, HD stable alert awake follows commands adequate urine output cxr appears clear, copd changes results pending labs unremarkable Suggest -neurochecks/seizure precautions -ciwa protocol -dc fentanyl/versed -start librium -continue precedex -thiamine/folate -monitor for refeeding syndrome -SAT/SBT, wean to extubate as tolerated -keep sat 88-92% -abx/cxs -nebs/steroids -dc ivf, feeds as tolerated -monitor ins/otus -replace lytes prn -keep glucose 40-180s -gi/dvt ppx -please call eICU if condition changes total ccm time 55 mins
[2023-02-20] MEDS: ENOXAPARIN 40 MG/0.4 ML SYRINGE SUBCUT (10:01)
[2023-02-20] MEDS: FAMOTIDINE 20 MG/2 ML VIAL IV ×2 (10:03→20:58)
[2023-02-20] MEDS: NICOTINE 14 PATCH 14 MG TOP (10:03)
[2023-02-20] MEDS: chlordiazePOXIDE 25 MG CAPSULE 50 MG PO ×3 (10:19→20:58)
--- NOTE | 2023-02-20 11:59 | PC.NURSE ---
Rounds with tele clay stain mixer MD Dr. Silverman at 930. Patient awakens and following commands, plan for SBT and if tolerating, extubate patient today. SBT from 945am-1015am with R.T. Per Dr. Renner give librium via OG prior to extubating and then stop versed and fentanyl gtts as planned. Patient extubated at 1030am. Following commands, and restraints removed, patient agrees not to pull at lines. Patient oriented to self and place, denies GARY, pain, trembling, and hallucinations. Ferguson in place at this time. Right IJ triple lumen intact and in place at this time. Patient on 2L NC. Denies shortness of breath. Will continue to monitor. Bed alarm on for safety, with call light within reach.
--- NOTE | 2023-02-20 12:44 | CM.DPC ---
Addendum entered by SYEDA Alanis 02/20/23 14:25: ADD: Per and RN, pt was successfully extubated today and remains on oxygen and receiving ongoing tx and PT/OT pending. SW met bedside with pt and explained role and discussed eventual PT/OT eval to confirm he is steady with ambulation. Pt states he typically ambulates without DME and independently and can walk far distances typically. Pt confirms that he bought a new vehicle a month or so ago but had plans for the vehicle to be worked on/fixed but his jewelry mechanic fell through and therefore pt and his bibi who stays with him in his car have had to spend more of their money on motels and places to stay and have not been able to move their vehicle for about a month. Pt states though that [facility] and likely community high pressure cleaner have worked with them well and aware they are trying to get the vehicle moved to a new location. Pt confirms that his friend is also a drinker and was admitted a couple weeks ago for ETOH withdrawal also. Pt denies any hx of ETOH tx and currently contemplative regarding abstinence or ETOH tx and declines resources yet at this time. Pt has a supportive aunt and uncle on [facility] but states they have provided the pt with a place to stay on their property and a financial loan and are still supportive but not readily willing to help pt with housing or money at this time. Pt would be agreeable to Community Bristle Machine Operator Cal checking in with pt bedside if Cal is agreeable and available for ongoing community resource planning and housing/vehicle repair. SW left [facility] for Cal on his office phone. Plan: SW to follow for PT/OT eval and likely pt d/c back to his vehicle with his friend and plans to remain in [facility] at least until his vehicle can be repaired. SYEDA Alanis Original Note: DCP Cont: Per and RN, pt was intubated yesterday 02/19/23 in the early AM due to decreased respirations and central line placed and pt remains sedated at this time. Potential for reducing sedation later today to determine if attempts at extubation later today might be possible. Plan: SW to follow closely for possible extubation towards ongoing discussion with pt regarding discharge planning, likely eventual PT eval and community resources. Pt's homeless situation and ETOH a barrier to SNF placement. SYEDA Alanis
--- NOTE | 2023-02-20 13:17 | RT ---
Pt was extubated @ 1030 to a 2L NC. MD was ok to extubate if pt tolerated weaning trial. Pt did well on SPN/CP.
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
--- NOTE | 2023-02-20 14:21 | PT.IPTN ---
Current Diagnoses Alcohol abuse, uncomplicated (02/17/23) Alcohol use, unspecified with intoxication, unspecified (02/17/23) Alcohol use, unspecified with withdrawal, unspecified (02/17/23) Nicotine dependence, unspecified, uncomplicated (02/17/23) Pneumonia, unspecified organism (02/17/23) Chronic obstructive pulmonary disease with (acute) exacerbation (02/17/23) Chronic obstructive pulmonary disease, unspecified (02/17/23) Acute respiratory failure with hypoxia (02/17/23) Acute respiratory failure with hypercapnia (02/17/23) Abrasion of scalp, initial encounter (02/17/23) Unspecified injury of head, initial encounter (02/17/23) Physical Therapy Treatment Note M2 PT-IP Current Condition Start: 02/18/23 11:51 Freq: NEEDED Status: Active Protocol: Document 02/18/23 10:24 AB (Rec: 02/18/23 12:10 AB [id number]) Physical Therapy Current Condition Current Condition Evaluation Date 02/18/23 Treatment Diagnosis COPD exacerbation; difficulty in walking Onset Date 02/17/23 M3 PT-IP Subjective Start: 02/18/23 11:51 Freq: NEEDED Status: Active Protocol: Document 02/20/23 14:43 TS (Rec: 02/20/23 15:05 TS [id number]) Subjective Physical Therapy Visit Type Type Treatment Note Visit Start Time 14:21 Visit Stop Time 14:40 Total Visit Minutes 19 Number of PLASTERER HELPER Visits 1 Physical Therapy Visit Comments Patient Comments Pt found resting in bed, agreeable to PT. M4 PT-IP Mobility and Gait Start: 02/18/23 11:51 Freq: NEEDED Status: Active Protocol: Document 02/20/23 14:43 TS (Rec: 02/20/23 15:05 TS [id number]) PT-Bed Mobility Assessment Supine to Sit Supine to Sit Standby Assistance,Head of Bed Elevated Sit to Supine Sit to Supine Standby Assistance Scooting Scooting to Edge of Bed Standby Assistance PT-Transfer Assessment Sit to and From Stand Sit to and from Stand Contact Guard Assistance,1 Person Assistance,Use of Upper Extremities Equipment Transfer Assistive Device None,Gait Belt,Front Wheeled Walker Orthotic/Prosthetic Devices or Brace: No Comments Mobility Comments Pt found resting in bed on 2L of o2 95%, 93% RA after mobility. Supine to sit HOB elevated SBA, pt impulsive to move when therapist is not ready. Sitting EOB pt impulsive to stand with no AD, unsteady on feet, therapist instructed pt to stay sitting for use with FWW to stand. Sit to stand with FWW CGA with BUE support on FWW, flexed posture with flexed knees, provided cues for upright posture. Pt ambulated in room ~40' CGA/Michelle, pt required consistent cues for staying in FWW and decreased trunk flexion. Pt unsteady on feet, requires tactile cues for FWW management when pivoting/ turning with FWW and assistance in management of lines. Pt was left back in bed with nrusing staff attending to needs. Gait Assessment Gait Gait Assistance Required: Contact Guard Assist,Minimum Assistance Distance (Feet) 40 Able to Maintain Weight Bearing Status Yes During Gait Assistive Devices Assistive Device None,Gait Belt,Front Wheeled Walker Orthotic/Prosthetic Devices or Brace: No Gait Deviations General Gait Pattern Ataxic,Decreased Stride Length ,Decreased Feet Clearance Factors Limiting Gait Function Factors Limiting Gait Function Decreased Activity Tolerance, Decreased Strength,Difficulty Following Directions,Poor Balance,Poor Safety Awareness, Respiratory Distress Comments Gait Comments See mobility comments. PT-Balance Assessment Sitting Balance and Reactions Static Sitting Balance Ability Good Dynamic Sitting Balance Ability Good Standing Balance and Reactions Static Standing Balance Ability Fair Dynamic Standing Balance Ability Poor Device Used without AD M5 PT-IP Objective Assessments Start: 02/18/23 11:51 Freq: NEEDED Status: Active Protocol: Document 02/18/23 10:24 AB (Rec: 02/18/23 12:10 AB [id number]) Orientation Orientation/Cognition Level of Alertness Alert Orientation Name,Place,Situation Language Function Ability No Deficits Noted Safety Awareness Decreased Safety Awareness Memory Description No Deficits Noted Gross Range of Motion Lower Extremity ROM Assessment Within Functional Limits Strength Lower Extremity Strength Assessment Bilaterally Impaired Hip 4-/5 Knee 3+/5 Muscle Tone Muscle Tone WNL Yes M6 PT-IP Treatment Start: 02/18/23 11:51 Freq: NEEDED Status: Active Protocol: Document 02/20/23 14:43 TS (Rec: 02/20/23 15:05 TS [id number]) Physical Therapy Treatment Education Education Provided Safety M7 PT-IP Assessment and Plan Start: 02/18/23 11:51 Freq: NEEDED Status: Active Protocol: Document 02/20/23 14:43 TS (Rec: 02/20/23 15:05 TS [id number]) PT Summary Assessment and Plan Potential Rehabilitation Potential Fair Summary Impairments Pain,ROM,Strength,Balance, Coordination,Sensation,Tone, Cognition,Bed Mobility, Transfers,Gait,Activity Tolerance Progress Towards Goals Slow Progress due to Medical Issues Assessment Summary Pt was extubated this afternoon and could participate in PT. Pt is SBA for all bed mobility this session. He is impulsive to stand at EOB with no AD before therapist was ready, pt unsteady on his feet with no AD, instructed pt to sit EOB and use FWW. He ambulated ~40' in room CGA/Michelle, requires consistent cues for staying close to FWW and tactile cues for turning/pivoting with FWW. Pt lacks safety awareness with mobility and remains a high falls risk due to poor balance. PT is recommending SNF vs Home at this time. If pt improves during hospital stay he may not require SNF. May require FWW or least restrictive device if pt does not attend SNF rehab. Goals Bed Mobility Goal Independent Transfer Goal Independent,Front Wheeled Walker Gait Goal Independent,Front Wheel Walker Gait Distance 300 Other Goals improve transfers and ambulation using least restrictive AD or without AD mod I up/down 10 steps 1 rail SBA Days to Meet Goals 10 Frequency of Treatment Frequency Of Treatment Once a Day Treatment Plan Physical Therapy Treatment Plan Bed Mobility Training,Transfer Training,Gait Training, Therapeutic Exercise,Balance Retraining,Discharge Planning, Hot or Cold Pack,Neuromuscular Re-ed,Coordination Retraining Precautions Other Precautions falls Recommendations To Nursing Amount of Assist Needed 1 Person Assist Discharge Recommendations PT Discharge Recommendations Home vs SNF Equipment Needed for Home Before FWW if not safe without AD/SPC Discharge Transportation Needs at Discharge Private Vehicle,Wheelchair/ Cabulance
--- NOTE | 2023-02-20 15:08 | OT.IPNOTE ---
Per nursing, pt is now extubated and ready to see pt. Attempted to see pt but pt just returned to bed after working with P.T. Will continue to follow.
[2023-02-20] MEDS: dexmedeTOMIDine in 0.9 % NaCL 400 MCG/100 ML PLAST..BAG IV (17:56)
--- NOTE | 2023-02-20 17:58 | PC.NURSE ---
Patient's heart rate increased 120-130, sinus tachycardia. Dr. Renner notified, and wants to restart precedex gtt as ordered. Continue to monitor.
--- NOTE | 2023-02-20 20:40 | PM.ICURNDS ---
- Date Patient Seen: 02/20/23 Time Patient Seen: 20:40 :: This patient was seen via real time interactive two-way audiovisual telecommunication. Note: extubated today doing well remains on precedex. wean as tolerated continue to monitor for withdrawal
[2023-02-20] MEDS: SODIUM CHLORIDE 0.9% FLUSH 10 ML IV (20:58)
[2023-02-21] VITALS (30 sets, daily range): BP systolic 105–153; BP diastolic 56–88; PULSE 50–118; RESP 16–27; TEMP 36.5–37.1; O2SAT 86–97
[2023-02-21] MEDS: PIPERACILLIN/TAZO 3.375 GM in SODIUM CHLORIDE 0.9% 100 ML IV ×3 (01:53→18:11)
[2023-02-21] MEDS: SODIUM CHLORIDE 0.9% FLUSH 10 ML IV ×3 (05:04→21:00)
[2023-02-21 05:31] LABS: Add Manual Diff / Slide Review NO; Basophils Absolute Auto 0 /uL (0-100); Basophils Percent Auto 0.3 % (0-2); Eosinophils Absolute Auto 0 /uL (0-450); Hematocrit 34.5 % (41-53); Hemoglobin 11.6 g/dL (13.5-17.5); Lymphocytes Absolute Auto 2400 /uL (1100-4500); Lymphocytes Percent Auto 19.2 % (25-40); Mean Corpuscular HGB Conc 33.5 % (30-36); Mean Corpuscular Hemoglobin 31.1 PG (26-34); Mean Corpuscular Volume 92.9 fL (80-100); Monocytes Absolute Auto 700 /uL (0-900); Monocytes Percent Auto 5.6 % (3-14); Neutrophils Absolute Auto 9200 /uL (1500-7000); Neutrophils Percent Auto 74.9 % (50-75); Platelet Count 234 X10^3/uL (150-400); Red Blood Cell Count 3.71 X10^6/uL (4.5-5.9); Red Cell Distribution Width 16.1 % (11.6-14.8); White Blood Cell Count 12.3 X10^3/uL (4.5-11.0)
[2023-02-21 05:45] LABS: Alanine Aminotransferase 14 IU/L (<50); Alkaline Phosphatase 51 U/L (38-126); Aspartate Aminotransferase 23 IU/L (17-59); BUN Creatinine Ratio 33.3 (6-22); Bilirubin Total 0.6 mg/dL (0.2-1.3); Blood Urea Nitrogen 16 mg/dL (9-20); Calcium 7.9 mg/dL (8.4-10.2); Carbon Dioxide 31 mmol/L (22-32); Chloride 100 mmol/L (98-107); Estimated Glomerular Filt Rate > 60 mL/min (>60); Glucose 101 mg/dL (70-100); HEMOLYSIS 47 (0-50); Magnesium 1.9 mg/dL (1.6-2.3); Potassium 3.7 mmol/L (3.4-5.1); Sodium 133 mmol/L (137-145)
--- NOTE | 2023-02-21 06:22 | PC.NURSE ---
Supervisor [employer] Note-Patient has been oriented x3, forgetful of date, CIWA 1. Precedex was 0.6mcg/kg/hr at start of shift, HR 100, titrated down to 0.2mcg/kg/hr by am, HR now 60s-70s, BP stable, RR 20s, SpO2 >92% on 1.5L NC, denies pain, shortness of breath, or nausea.
[2023-02-21] MEDS: BUDESONIDE 0.5 MG/2 ML NEB INH ×2 (07:14→17:58)
[2023-02-21] MEDS: FOLIC ACID 1 MG TABLET PO (08:40)
[2023-02-21] MEDS: NICOTINE 14 PATCH 14 MG TOP (08:40)
[2023-02-21] MEDS: THIAMINE 100 MG TABLET PO (08:40)
[2023-02-21] MEDS: predniSONE 20 MG TABLET 40 MG PO (08:41)
[2023-02-21] MEDS: MULTIVITAMIN 1 TABLET 1 TAB PO (08:42)
[2023-02-21] MEDS: FAMOTIDINE 20 MG/2 ML VIAL IV (08:42)
[2023-02-21] MEDS: chlordiazePOXIDE 25 MG CAPSULE 50 MG PO ×3 (08:42→21:00)
[2023-02-21] MEDS: ENOXAPARIN 40 MG/0.4 ML SYRINGE SUBCUT (08:43)
--- NOTE | 2023-02-21 10:30 | PT.IPTN ---
Current Diagnoses Alcohol abuse, uncomplicated (02/17/23) Alcohol use, unspecified with intoxication, unspecified (02/17/23) Alcohol use, unspecified with withdrawal, unspecified (02/17/23) Nicotine dependence, unspecified, uncomplicated (02/17/23) Pneumonia, unspecified organism (02/17/23) Chronic obstructive pulmonary disease with (acute) exacerbation (02/17/23) Chronic obstructive pulmonary disease, unspecified (02/17/23) Acute respiratory failure with hypoxia (02/17/23) Acute respiratory failure with hypercapnia (02/17/23) Abrasion of scalp, initial encounter (02/17/23) Unspecified injury of head, initial encounter (02/17/23) Physical Therapy Treatment Note M2 PT-IP Current Condition Start: 02/18/23 11:51 Freq: NEEDED Status: Active Protocol: Document 02/18/23 10:24 AB (Rec: 02/18/23 12:10 AB [email or web address]) Physical Therapy Current Condition Current Condition Evaluation Date 02/18/23 Treatment Diagnosis COPD exacerbation; difficulty in walking Onset Date 02/17/23 M3 PT-IP Subjective Start: 02/18/23 11:51 Freq: NEEDED Status: Active Protocol: Document 02/21/23 10:30 AB (Rec: 02/21/23 11:39 AB [email or web address]) Subjective Physical Therapy Visit Type Type Treatment Note Visit Start Time 10:30 Visit Stop Time 10:55 Total Visit Minutes 25 Number of PIPED BUTTONHOLE MACHINE OPERATOR Visits 0 Physical Therapy Visit Comments Patient Comments agreeable to do PT M4 PT-IP Mobility and Gait Start: 02/18/23 11:51 Freq: NEEDED Status: Active Protocol: Document 02/21/23 10:30 AB (Rec: 02/21/23 11:39 AB [id number]) PT-Bed Mobility Assessment Supine to Sit Supine to Sit Standby Assistance,Head of Bed Elevated PT-Transfer Assessment Sit to and From Stand Sit to and from Stand Contact Guard Assistance,1 Person Assistance,Use of Upper Extremities Equipment Transfer Assistive Device Gait Belt,Front Wheeled Walker Orthotic/Prosthetic Devices or Brace: No Transfers Transfer Destination Chair Transfer Technique ambulated Transfer Ability Level of Assist Contact Guard Assistance,1 Person Assistance,Use of Upper Extremities Comments Mobility Comments pt intubated 02/19/23 and extubated 02/20/23. pt completed bed mobility supine to sit SBA with HOB elevated. completed sit to stand CGA and ambulated in room using FWW CGA ~ 45 ft. demonstrated ataxic gait with decrerase step length and width and slow paced gait. pt agreed to sit on the chair. positioned on the chair. call light and table placed within reach. Gait Assessment Gait Gait Assistance Required: Contact Guard Assist Distance (Feet) 45 Able to Maintain Weight Bearing Status Yes During Gait Assistive Devices Assistive Device Gait Belt,Front Wheeled Walker Orthotic/Prosthetic Devices or Brace: No Gait Deviations General Gait Pattern Ataxic,Decreased Stride Length ,Decreased Feet Clearance Factors Limiting Gait Function Factors Limiting Gait Function Decreased Activity Tolerance, Decreased Strength,Difficulty Following Directions,Poor Balance,Poor Safety Awareness, Respiratory Distress M5 PT-IP Objective Assessments Start: 02/18/23 11:51 Freq: NEEDED Status: Active Protocol: Document 02/18/23 10:24 AB (Rec: 02/18/23 12:10 AB [id number]) Orientation Orientation/Cognition Level of Alertness Alert Orientation Name,Place,Situation Language Function Ability No Deficits Noted Safety Awareness Decreased Safety Awareness Memory Description No Deficits Noted Gross Range of Motion Lower Extremity ROM Assessment Within Functional Limits Strength Lower Extremity Strength Assessment Bilaterally Impaired Hip 4-/5 Knee 3+/5 Muscle Tone Muscle Tone WNL Yes M6 PT-IP Treatment Start: 02/18/23 11:51 Freq: NEEDED Status: Active Protocol: Document 02/21/23 10:30 AB (Rec: 02/21/23 11:39 AB [id number]) Physical Therapy Treatment Education Education Provided Safety M7 PT-IP Assessment and Plan Start: 02/18/23 11:51 Freq: NEEDED Status: Active Protocol: Document 02/21/23 10:30 AB (Rec: 02/21/23 11:39 AB [id number]) PT Summary Assessment and Plan Potential Rehabilitation Potential Fair Summary Impairments Pain,ROM,Strength,Balance, Coordination,Sensation,Tone, Cognition,Bed Mobility, Transfers,Gait,Activity Tolerance Progress Towards Goals Slow Progress due to Medical Issues,Slow Progress due to Activity Tolerance,Slow Progress - Other Assessment Summary PT eval completed 02/18/23. pt intubated 02/19/23 and extubated 02/20/23. Pt's mobility is at comparable with eval mobility level and all goals still appropriate for pt and no re-eval warranted at this time. pt to continue with goals set from eval. pt requiring SBA with bed mobility and CGA with ambulation using FWW. will continue to assess progress. Goals Bed Mobility Goal Independent Transfer Goal Independent,Front Wheeled Walker Gait Goal Independent,Front Wheel Walker Gait Distance 300 Other Goals improve transfers and ambulation using least restrictive AD or without AD mod I up/down 10 steps 1 rail SBA Days to Meet Goals 10 Frequency of Treatment Frequency Of Treatment Once a Day Treatment Plan Physical Therapy Treatment Plan Bed Mobility Training,Transfer Training,Gait Training, Therapeutic Exercise,Balance Retraining,Post Op Education, Discharge Planning,Hot or Cold Pack,Neuromuscular Re-ed, Coordination Retraining,Manual Therapy Precautions Other Precautions falls Recommendations To Nursing Amount of Assist Needed 1 Person Assist Discharge Recommendations PT Discharge Recommendations Home vs SNF Equipment Needed for Home Before FWW if not safe without AD/SPC Discharge Transportation Needs at Discharge Private Vehicle,Wheelchair/ Cabulance
[2023-02-21] MEDS: METOPROLOL ER 25 MG TABLET PO (11:27)
--- NOTE | 2023-02-21 11:36 | OT.IPNOTE ---
Checked with nursing regarding seeing pt for OT. Nursing states has been having high HR and best to check on pt tomorrow.
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
[2023-02-21] MEDS: FAMOTIDINE 20 MG TABLET PO (21:00)
[2023-02-22] MEDS: PIPERACILLIN/TAZO 3.375 GM in SODIUM CHLORIDE 0.9% 100 ML IV ×2 (01:40→08:40)
[2023-02-22 03:00] VITALS: BP 122/69; PULSE 73; RESP 20; TEMP 36.8; O2SAT 95
[2023-02-22 05:00] LABS: Add Manual Diff / Slide Review NO; Basophils Absolute Auto 0 /uL (0-100); Eosinophils Absolute Auto 0 /uL (0-450); Eosinophils Percent Auto 0.2 % (2-4); Hemoglobin 12.4 g/dL (13.5-17.5); Lymphocytes Absolute Auto 2900 /uL (1100-4500); Lymphocytes Percent Auto 27.6 % (25-40); Mean Corpuscular HGB Conc 33.4 % (30-36); Monocytes Absolute Auto 800 /uL (0-900); Monocytes Percent Auto 7.2 % (3-14); Neutrophils Absolute Auto 6900 /uL (1500-7000); Platelet Count 234 X10^3/uL (150-400); Red Blood Cell Count 3.98 X10^6/uL (4.5-5.9); Red Cell Distribution Width 16.3 % (11.6-14.8); White Blood Cell Count 10.6 X10^3/uL (4.5-11.0)
[2023-02-22 05:08] LABS: Alanine Aminotransferase 14 IU/L (<50); Albumin 3.3 g/dL (3.5-5.0); Alkaline Phosphatase 75 U/L (38-126); Aspartate Aminotransferase 19 IU/L (17-59); Bilirubin Total 0.4 mg/dL (0.2-1.3); Blood Urea Nitrogen 13 mg/dL (9-20); Calcium 8.3 mg/dL (8.4-10.2); Carbon Dioxide 31 mmol/L (22-32); Chloride 101 mmol/L (98-107); Estimated Glomerular Filt Rate > 60 mL/min (>60); Globulin 3.3 g/dL (1.7-4.1); Glucose 104 mg/dL (70-100); HEMOLYSIS < 15 (0-50); Magnesium 2.1 mg/dL (1.6-2.3); Potassium 3.5 mmol/L (3.4-5.1); Sodium 135 mmol/L (137-145); Total Protein 6.6 g/dL (6.3-8.2)
[2023-02-22 07:00] VITALS: BP 132/77; PULSE 86; RESP 20; TEMP 36.6; O2SAT 95
[2023-02-22 08:19] VITALS: PULSE 91; RESP 18; O2SAT 95
[2023-02-22] MEDS: BUDESONIDE 0.5 MG/2 ML NEB INH (08:19)
[2023-02-22] MEDS: predniSONE 20 MG TABLET 40 MG PO (08:37)
[2023-02-22] MEDS: METOPROLOL ER 25 MG TABLET PO (08:37)
[2023-02-22] MEDS: FAMOTIDINE 20 MG TABLET PO (08:37)
[2023-02-22] MEDS: chlordiazePOXIDE 25 MG CAPSULE 50 MG PO ×2 (08:37→12:45)
[2023-02-22] MEDS: FOLIC ACID 1 MG TABLET PO (08:37)
[2023-02-22] MEDS: NICOTINE 14 PATCH 14 MG TOP (08:37)
[2023-02-22] MEDS: MULTIVITAMIN 1 TABLET 1 TAB PO (08:40)
[2023-02-22] MEDS: SODIUM CHLORIDE 0.9% FLUSH 10 ML IV (08:40)
[2023-02-22] MEDS: ENOXAPARIN 40 MG/0.4 ML SYRINGE SUBCUT (08:40)
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
[2023-02-22] MEDS: POTASSIUM CHLORIDE 20 MEQ TAB 40 MEQ PO (09:46)
--- NOTE | 2023-02-22 11:00 | PT.IPTN ---
Current Diagnoses Alcohol abuse, uncomplicated (02/17/23) Alcohol use, unspecified with intoxication, unspecified (02/17/23) Alcohol use, unspecified with withdrawal, unspecified (02/17/23) Nicotine dependence, unspecified, uncomplicated (02/17/23) Pneumonia, unspecified organism (02/17/23) Chronic obstructive pulmonary disease with (acute) exacerbation (02/17/23) Chronic obstructive pulmonary disease, unspecified (02/17/23) Acute respiratory failure with hypoxia (02/17/23) Acute respiratory failure with hypercapnia (02/17/23) Abrasion of scalp, initial encounter (02/17/23) Unspecified injury of head, initial encounter (02/17/23) Physical Therapy Treatment Note M2 PT-IP Current Condition Start: 02/18/23 11:51 Freq: NEEDED Status: Active Protocol: Document 02/18/23 10:24 AB (Rec: 02/18/23 12:10 AB [id number]) Physical Therapy Current Condition Current Condition Evaluation Date 02/18/23 Treatment Diagnosis COPD exacerbation; difficulty in walking Onset Date 02/17/23 M3 PT-IP Subjective Start: 02/18/23 11:51 Freq: NEEDED Status: Active Protocol: Document 02/22/23 11:19 TS (Rec: 02/22/23 11:43 TS [id number]) Subjective Physical Therapy Visit Type Type Treatment Note Visit Start Time 11:00 Visit Stop Time 11:16 Total Visit Minutes 16 Number of PRESIDENT AND CHIEF EXECUTIVE OFFICER Visits 1 Physical Therapy Visit Comments Patient Comments agreeable to do PT M4 PT-IP Mobility and Gait Start: 02/18/23 11:51 Freq: NEEDED Status: Active Protocol: Document 02/22/23 11:19 TS (Rec: 02/22/23 11:43 TS [id number]) PT-Transfer Assessment Sit to and From Stand Sit to and from Stand Standby Assistance Equipment Transfer Assistive Device None,Gait Belt Orthotic/Prosthetic Devices or Brace: No Comments Mobility Comments Pt found resting in chair, agreeable to PT. Sit to stand no AD from chair, pt is unsteady initially on feet. He ambulated ~400' SBA with no AD, some unsteadiness with veering to right or left, provided cues for walking in straight line, pt continues to veer to right and overcorrects to left, no buckling or LOB. Pt was left back in room with call light nearby, chair alarm in place. Gait Assessment Gait Gait Assistance Required: Contact Guard Assist Distance (Feet) 400 Able to Maintain Weight Bearing Status Yes During Gait Assistive Devices Assistive Device Gait Belt,Front Wheeled Walker Orthotic/Prosthetic Devices or Brace: No Gait Deviations General Gait Pattern Narrow Based Gait Factors Limiting Gait Function Factors Limiting Gait Function Decreased Strength,Difficulty Following Directions,Poor Balance,Poor Safety Awareness Comments Gait Comments Pt has some unsteadiness with gait. He veers to one side and overcorrects back to other side. Recommended pt use cane/ walking stick when out of hospital. PT-Balance Assessment Sitting Balance and Reactions Static Sitting Balance Ability Good Dynamic Sitting Balance Ability Good Standing Balance and Reactions Static Standing Balance Ability Good Dynamic Standing Balance Ability Fair Device Used without AD M5 PT-IP Objective Assessments Start: 02/18/23 11:51 Freq: NEEDED Status: Active Protocol: Document 02/18/23 10:24 AB (Rec: 02/18/23 12:10 AB [id number]) Orientation Orientation/Cognition Level of Alertness Alert Orientation Name,Place,Situation Language Function Ability No Deficits Noted Safety Awareness Decreased Safety Awareness Memory Description No Deficits Noted Gross Range of Motion Lower Extremity ROM Assessment Within Functional Limits Strength Lower Extremity Strength Assessment Bilaterally Impaired Hip 4-/5 Knee 3+/5 Muscle Tone Muscle Tone WNL Yes M6 PT-IP Treatment Start: 02/18/23 11:51 Freq: NEEDED Status: Active Protocol: Document 02/22/23 11:19 TS (Rec: 02/22/23 11:43 TS [id number]) Physical Therapy Treatment Education Education Provided Safety M7 PT-IP Assessment and Plan Start: 02/18/23 11:51 Freq: NEEDED Status: Active Protocol: Document 02/22/23 11:19 TS (Rec: 02/22/23 11:43 TS [id number]) PT Summary Assessment and Plan Potential Rehabilitation Potential Good Summary Impairments Pain,ROM,Strength,Balance, Coordination,Sensation,Tone, Cognition,Bed Mobility, Transfers,Gait,Activity Tolerance Progress Towards Goals Progressing Toward Goals Assessment Summary Pt improved mobility with no AD for sit to stands and gait. He is unsteady on his feet with gait, he veers to one side and overcorrects back to the other side. Recommended pt get cane/walking stick for assistance with balance. PT recommends home with assistance due to poor balance . Goals Bed Mobility Goal Independent Transfer Goal Independent,Front Wheeled Walker Gait Goal Independent,Front Wheel Walker Gait Distance 300 Other Goals improve transfers and ambulation using least restrictive AD or without AD mod I up/down 10 steps 1 rail SBA Days to Meet Goals 10 Frequency of Treatment Frequency Of Treatment Once a Day Treatment Plan Physical Therapy Treatment Plan Bed Mobility Training,Transfer Training,Gait Training, Therapeutic Exercise,Balance Retraining,Post Op Education, Discharge Planning,Hot or Cold Pack,Neuromuscular Re-ed, Coordination Retraining,Manual Therapy Precautions Other Precautions falls Recommendations To Nursing Amount of Assist Needed Standby Assistance Discharge Recommendations PT Discharge Recommendations Home with Assistance Other Discharge Recommendations Pt plans on returning back to his car when d/c. Equipment Needed for Home Before SPC/walking stick Discharge Transportation Needs at Discharge Private Vehicle,Wheelchair/ Cabulance
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
--- NOTE | 2023-02-22 12:07 | OT.IPNOTE ---
OT orders received yesterday and not seen due to high BP. Pt has discharge orders in and per nursing has been able to shower on his own today. Therefore pt has no OT needs at this time. Per PT note pt would benefit from a cane/walking stick due to occasional unsteadiness on his feet.
--- NOTE | 2023-02-22 16:03 | CM.DPC ---
DCP continued: ASSISTANT DEAN reviewed EMR. Per rounds, patient likely ready to d/c today. Per provider, patient has questions regarding his insurance. ASSISTANT DEAN entered room and reintroduced self and role. Patient was sitting up and appeared A/Ox4. Patient reports he knows he has questions regarding his coverage, but does not remember the specific questions he has at this time. ASSISTANT DEAN provided patient with resources for health insurance counseling, the phone number for patient accounts here at [facility], and state level Medicare/Medicaid insurance information. Patient appeared appreciative. Patient denied additional resources for alcohol detox, housing, and other resources at this time at this time. Patient reports wanting to return to his car with his friend. Plan: patient will d/c and walk from hospital to where his car is parked. Patient will follow up with [facility] english as a second language teacher and with health insurance counseling for further guidance. CM team will continue to follow as needed. SYEDA Ellis
== END 2023-02-22 12:58 | disposition home or self-care (01) | DRG 208 ==
LOC: ED 19:41 → AC 20:05 → ICU 02-20 06:14
PROVIDERS: Anesthesiology Critical Care Medicine; Internal Medicine; Neuromusculoskeletal Medicine, Sports Medicine; Admitting Provider Nurse Practitioner Family; Emergency Provider Emergency Medicine; PCP Physician Assistant Medical; Visit Provider Nurse Practitioner Family
DX: J44.1 Chronic obstructive pulmonary disease with (acute) exacerbation (principal); J96.02 Acute respiratory failure with hypercapnia; E43 Unspecified severe protein-calorie malnutrition; J69.0 Pneumonitis due to inhalation of food and vomit; J96.01 Acute respiratory failure with hypoxia; Z68.1 Body mass index [BMI] 19.9 or less, adult; F10.139 Alcohol abuse with withdrawal, unspecified; F17.200 Nicotine dependence, unspecified, uncomplicated; S00.01XA Abrasion of scalp, initial encounter; W17.89XA Other fall from one level to another, initial encounter; F10.129 Alcohol abuse with intoxication, unspecified; Y90.8 Blood alcohol level of 240 mg/100 ml or more; Z59.02 Unsheltered homelessness; Z23 Encounter for immunization; Z20.822 Contact with and (suspected) exposure to COVID-19
CPT/HCPCS: 36415; 36592; 36600; 70450; 70551; 71045; 72125; 72170; 80048; 80053; 80305; 80320; 82550; 82805; 82962; 83036; 83605; 83690; 83735; 83880; 84145; 84484; 85007; 85025; 85610; 85730; 86850; 86900; 86901; 87040; 87070; 87205; 87633; 87797; 90471; 93005; 94002; 94003; 94010; 94640; 94762; 94799; 96374; 97116; 97162; 97530; 99285; 99291; 90715; A9270; J0330; J0360; J1630; J1642; J1650; J2060; J2250; J2543; J2704; J2930; J3010; J3475; J7613